=== PATIENT | male | born 1935 | race Caucasian/White ===

== ENCOUNTER 2018-03-20 18:09 | Outpatient (REF) | payer OTHER, SELFPAY ==
--- NOTE | 2018-03-20 15:15 | SKI_PTH ---
PATIENT: PARRISH FITZGERALD LOC: [facility] U#:[id number] AGE/SX: 82/M ROOM: RE03/20/[address]: Jordan Higuera DO : 1935 BED: DIS: 03/20/2018 SPEC #: [id number] RECD: 03/20/18 18:15 STATUS: JADE REQ #: [id number] LIZZIE: 03/20/18 15:[address]: Jordan Higuera DEPT: Surgical Specimen RECD BY: Radha Murrieta ENTERED: 03/20/18 18:16 SP TYPE: YULIET GARCIA DR: Karena Hansen Tissues: 1 - SKIN BIOPSY(SHAVE/PUNCH) Procedures: SKIN LEVEL 4 Comments: [id number]
== END 2018-03-20 18:29 ==
LOC: LBN 18:09
PROVIDERS: PCP Internal Medicine; Visit Provider Otolaryngology Otolaryngology/Facial Plastic Surgery
DX: C44.212 Basal cell carcinoma of skin of right ear and external auricular canal (principal)
CPT/HCPCS: 88305

== ENCOUNTER 2018-05-25 19:25 | Inpatient (IN) | payer OTHER, SELFPAY ==
[2018-05-25] VITALS (40 sets, daily range): BP systolic 96–149; BP diastolic 55–98; PULSE 99–125; RESP 17–41; TEMP 37.3–37.4; O2SAT 88–99
--- NOTE | 2018-05-25 20:00 | ED.GENADUL_ITS ---
Discharge Plan Disposition Patient Disposition: [facility] INPATIENT Condition: Poor Discharge Details Chief Complaint: CVA/TIA Clinical Impression: Acute UTI, Acute confusion, Generalized weakness Reason For Visit: SEPSIS, UTI Admit Date/Time: 05/25/18 23:17 Admit Provider: Fritz Canada Attending Provider: Fritz Canada Primary Care Provider: WU VILLARREAL ED Provider: Jin Iglesias Medical Decision Making Patient presents with general weakness and confusion. Suspect metabolic/infectious etiology but family member is a PA in [facility] and was concerned for TIA/CVA. I don't think that is the issue. Patient initially seen briefly by my colleague, Dr. Nicholas, and orders placed. I then took over the patient when he returned from ID. Patient's EKG is sinus rhythm at 98 with a left bundle branch block which is old compared to an EKG from [facility]. CT scan of the head shows nothing acute. Chest x-ray is negative for pneumonia. Laboratory studies are unremarkable for the most part. His magnesium is a little low at 1.6 and was replaced. Lactic acid a little elevated at 2.3. First troponin negative. White count normal at 10.7. Creatinine a little bit up from baseline. Patient eventually able to provide urine sample after the first liter of LR was given. Urine is infected. This is the source of his weakness and confusion. He is becoming more agitated the longer he is here likely from sundowning from dementia. He is becoming tachycardic but it is not clear whether this is related to agitation or early sepsis. I have ordered a second liter of LR. Given ceftriaxone for the UTI. Case discussed with hospitalist, Dr. Canada, and we have chose Haldol to try to control his agitation. Patient will be admitted to the ICU for further management. Haldol did work nicely to control his agitation. Heart rate came down. He is admitted to the ICU in stable condition. Lab Data Lab results reviewed: Yes I reviewed the patient's lab results. ECG Data Attestation: I personally reviewed and interpreted this ECG (s) as follows: Prior ECG tracings: available for review Interpretation: Sinus rhythm at 98 with left bundle branch block which is old. HPI General Mode of arrival: wheelchair . Date/Time Provider Initiated Documentation: 05/25/18 19:52 . Limitations to Documentation: other (dementia) . Information obtained by: family and RN notes reviewed . HPI Narrative: Patient brought in by for evaluation of general weakness and confusion since about 9 this morning. He has history of dementia but is more confused than normal. states she has noticed him shaking more today then usual as well. He has been eating and drinking okay today. He has had no fever. He has no cough or URI symptoms. He has not complained of pain. He has not vomited or had diarrhea. He has not been weak on one side versus the other, just generally weak. Patient is not able to provide a reliable history at this point. Related Data Home Medications Medication Instructions Recorded Confirmed metformin [Glucophage Xr] 750 mg PO BID 01/16/13 05/25/18 sitagliptin [Januvia] 100 mg PO DAILY 10/23/15 05/25/18 Lactobacillus acidophilus 1 ea PO NS 10/05/16 aspirin [Aspirin Low Dose] 81 mg PO DAILY tab-cap NS 10/05/16 05/25/18 coenzyme Q10 100 mg PO NS 10/05/16 metoprolol succinate 25 mg PO DAILY tab-cap NS 10/05/16 05/25/18 omega-3 fatty acids-fish oil [Fish 1 ea PO NS 10/05/16 Oil] irbesartan 75 mg PO DAILY 05/25/18 05/25/18 rivastigmine 4.6 mg TRANSDERMAL DAILY 05/25/18 05/25/18 Allergies Allergy/AdvReac Type Severity Reaction Status Date / Time tegaderm Allergy Mild Skin Rash Uncoded 05/25/18 19:44 General Stated Complaint: CVA/TIA [place]: 2 Review of Systems Review of Systems Unobtainable due to (dementia/confusion) [facility] Medical History Arthritis (Chronic) Cardiomyopathy (Chronic) Chronic diarrhea (Chronic) Dementia (Chronic) Depressive disorder (Chronic) History of Lyme disease (Chronic) Hyperlipidemia (Chronic) Hypertensive disorder (Chronic) Irregular heart rate (Chronic) Rhinitis (Chronic) Type 2 diabetes mellitus (Chronic) Herpes zoster (Resolved) Malignant lymphoma (Resolved) Polyp of colon (Resolved) Squamous cell carcinoma of skin (Resolved) Surgical History Cholecystectomy (Inactive) Colonoscopy - MAC (Inactive 10/18/16) Extraction of cataract (Inactive) Family History Father Colon cancer Grandmother Colon cancer Maternal Aunt Colon cancer Social History Smoking/Tobacco Use Status: Never Alcohol Intake: never Drug use: Never Substance use type: does not use Do you feel safe at home: Yes Do you feel safe in your relationship?: Yes Exam Const General: comfortable and no acute distress Orientation: alert and oriented to person [facility] Head: normocephalic and atraumatic Mouth: moist mucous membranes Eyes Other: s/p IOL with nonreactive small pupils; cannot follow commands to fully evaluate EOM Neck Neck: no meningeal signs, trachea midline, supple and no JVD Resp Effort & Inspection: normal respiratory effort Auscultation: clear to auscultation bilaterally Cardio Rate: regular rate Rhythm: abnormal rhythm with ectopic beats Heart Sounds: S1 normal and S2 normal Pulses: radial pulses present GI Inspection: normal to inspection Palpation: soft, no guarding, no masses and nontender Skin Rashes: no rashes Neuro General: alert, awake, oriented Patient Orientation: Person, moves all extremities, no focal motor deficits and confused Motor: tremor Sensory Exam: no sensory deficits noted Extrem General: normal to inspection and no clubbing, cyanosis or edema Course Vital Signs Temperature 99.3 F 05/25/18 19:33 Pulse 104 H 05/25/18 19:33 Respiratory Rate 23 05/25/18 19:33 Blood Pressure 142/78 H 05/25/18 19:33 Pulse Oximetry 95 05/25/18 19:33 Temperature 99.3 F 05/25/18 19:33 Temperature Source Temporal Artery Scan 05/25/18 19:33 Pulse 104 H 05/25/18 19:33 Respiratory Rate 23 05/25/18 19:44 Respiratory Effort 05/25/18 19:44 Respiratory Depth Normal 05/25/18 19:44 Respiratory Pattern Normal 05/25/18 19:44 Blood Pressure 142/78 H 05/25/18 19:33 Pulse Oximetry 95 05/25/18 19:33 Oxygen Delivery Method Room Air 05/25/18 19:33 Oxygen Flow Rate 0 05/25/18 19:33 Pain Level 0 05/25/18 19:33
--- NOTE | 2018-05-25 20:04 | DI.COMBO_ITS ---
SYMPTOM/DIAGNOSIS: CONFUSION, WEAKNESS, ? ACUTE CVA AP AND LATERAL CHEST: The AP view is suboptimally penetrated. The heart is enlarged and the aorta is tortuous. This appears to have increased when compared with the previous exam of 2009. The lungs appear clear. No infiltrate, effusion or pulmonary edema is seen. IMPRESSION: Cardiomegaly. No acute abnormality. NONCONTRAST HEAD CT: Mild diffuse atrophy is again noted. No hemorrhage, acute infarct or mass is seen. The ventricles are normal in size. There is no evidence of skull fracture. The sinuses and mastoid air cells are clear where visualized. IMPRESSION: Atrophy, otherwise negative.
[2018-05-25 20:15] LABS: Abs Immature Grans 0.03 k/cumm (0.0-0.09); Absolute Basophil Count 0.03 k/cumm (0.0-0.2); Absolute Eosinophil Count 0.04 k/cumm (0.0-0.7); Absolute Lymphocyte Count 1.13 k/cumm (1.2-3.4); Absolute Monocyte Count 0.76 k/cumm (0.11-0.7); Absolute Neutrophil Count 8.68 k/cumm (1.2-6.7); Basophils % 0.3; Eosinophils % 0.4; HCT 41.6 % (40.0-50.0); HGB 13.9 g/dL (13.5-17.5); Immature Grans % 0.3; Lymphocytes % 10.6; Mean Corp. HGB Concentration 33.4 g/dL (32.0-36.0); Mean Corpuscular Hemoglobin 31.2 pg (27.0-33.0); Mean Corpuscular Volume 93.3 fL (80-95); Mean Platelet Volume 10.4 fL (8.0-11.0); Monocytes % 7.1; Neutrophils % 81.3; Platelet Count 250 x1000/uL (130-400); RBC 4.46 m/cumm (4.50-6.00); RBC Distribution Width 13.4 % (11.8-14.1); White Blood Cell Count 10.67 k/cumm (4.4-10.8)
[2018-05-25] MEDS: Lactated Ringers 1,000 ML 1000 ML IV (20:28)
[2018-05-25] MEDS: Normal Saline Flush 10 ML SYR IVP ×2 (20:29→22:34)
--- NOTE | 2018-05-25 20:31 | DI.VRAD_ITS ---
EXAM: CT Head Without Contrast EXAM DATE/TIME: 05/25/2018 7:53 PM CLINICAL HISTORY: 83 years old, male; Signs and symptoms; Weakness, extremity; Bilateral; Patient HX: Weakness, confusion, R/O acute CVA TECHNIQUE: Axial computed tomography images of the head/brain without contrast. All CT scans at this facility use at least one of these dose optimization techniques: automated exposure control; mA and/or kV adjustment per patient size (includes targeted exams where dose is matched to clinical indication); or iterative reconstruction. Coronal and sagittal reformatted images were created and reviewed. COMPARISON: No relevant prior studies available. FINDINGS: Brain: Changes of cerebral and cerebellar atrophy. Ventricles: No ventriculomegaly. Bones/joints: No acute fracture. Sinuses: Unremarkablel as visualized. No acute sinusitis. Mastoid air cells: Unremarkable as visualized. No mastoid effusion. Soft tissues: Unremarkable. IMPRESSION: No acute focal intracranial lesions. Changes of cerebral and cerebellar atrophy. Dictated and Authenticated by: Wong Villa MD. Ordering:MELISSA Rosario MD
[2018-05-25 20:33] LABS: ALT 24 U/L (12-78); AST 14 U/L (15-37); Albumin 3.6 g/dL (3.4-5.0); Alkaline Phosphatase 68 U/L (46-116); Anion Gap 7.5 mmol/L (3-11); BUN 23 mg/dL (7-18); Bilirubin, Total 0.7 mg/dL (0.2-1.0); CO2 29.5 mmol/L (21.0-32.0); CREATININE 1.38 mg/dL (0.70-1.30); Calcium 9.1 mg/dL (8.5-10.1); Chloride 98 mmol/L (98-107); Estimated GFR 49.45 (mL/min/1.73m2); Glucose 168 mg/dL (70-100); Lipase 203 U/L (73-393); Magnesium 1.6 mg/dL (1.8-2.4); Potassium 4.2 mmol/L (3.5-5.1); Sodium 135 mmol/L (136-145); Total Protein 7.8 g/dL (6.4-8.2)
[2018-05-25 20:34] LABS: Troponin I < 0.02 ng/mL (0.00-0.06)
--- NOTE | 2018-05-25 20:37 | DI.VRAD_ITS ---
EXAM: XR Chest, 2 Views EXAM DATE/TIME: 05/25/2018 8:11 PM CLINICAL HISTORY: 83 years old, male; Signs and symptoms; Wheezing; Patient HX: Weakness, confusion, R/O acute disease TECHNIQUE: XR of the chest, 2 views. COMPARISON: No relevant prior studies available. FINDINGS: Lungs: Unremarkable. No consolidation. Pleural space: Unremarkable. No pleural effusion. No pneumothorax. Heart/Mediastinum: Cardiomegaly. Bones/joints: Unremarkable. IMPRESSION: No infiltrates or effusions. Dictated and Authenticated by: Wong Villa MD. Ordering:MELISSA Rosario MD
[2018-05-25 20:56] LABS: Lactate-non-spesis 2.3 mmol/l (0.6-1.4)
[2018-05-25] MEDS: MAGNESIUM SULFATE 2 GM/50 ML BAG IVPB (21:03)
[2018-05-25] MEDS: Lactated Ringers 1,000 ML 150 ML IV (21:39)
[2018-05-25 21:42] LABS: Bilirubin Negative (Negative); Blood Small (Negative); Clarity Sl Cloudy; Glucose Negative (Negative); Ketones 15 mg/dL (Negative); Leukocyte Esterase Small (Negative); Nitrite Positive (Negative); Specific Gravity 1.025 (1.005-1.025); Urobilinogen 0.2 EU/dL (Up TO 0.2); pH 5.5 (5-8)
[2018-05-25 21:51] LABS: Epithelial Cells Rare HPF (Negative); WBC >50 HPF (0-5)
[2018-05-25 21:52] LABS: Bacteria Many HPF (Negative); C & S Indicated? Yes; Casts Negative LPF (Negative); Crystals Negative HPF (Negative); Mucus Trace (Negative)
[2018-05-25] MEDS: Haloperidol 5 MG/ML VIAL 2 MG IV (22:32)
[2018-05-25 23:49] LABS: Troponin I 0.05 ng/mL (0.00-0.06)
[2018-05-26] VITALS (38 sets, daily range): BP systolic 92–137; BP diastolic 47–99; PULSE 44–113; RESP 8–27; TEMP 36.3–37.7; O2SAT 90–96
[2018-05-26] MEDS: Enoxaparin 30 MG/0.3 ML SYR SC (00:20)
[2018-05-26] MEDS: Lactated Ringers 1,000 ML 150 ML IV (00:27)
--- NOTE | 2018-05-26 01:00 | HPE_ITS ---
Date of service: 05/25/18 Time of Service: 22:50 Assessment and Plan (1) Sepsis: Current visit: Yes Status: Acute patient presented w/ tachycardia, acute confusion, JAHAIRA, and evidence of UTI and left shift in his WBC and elevated blood lactate, all consistent w/ early sepsis. He also has had varible blood pressures w/ initially elevated blood pressure but some borderline low BP as well. Urine cultures have been obtained but blood cultures were not obtained but he has been started on Rocephin 2 gm. I will obtain blood cultures as well and check renal US in the a.m. to rule out pyelonephritis although he has no flank pain and no fevers. I did a POCUS of his abdomen and did not see hydronephrosis or evidence of renal stones. Patient has received 2 liters of LR, I will continue his iv fluids overnight as he has not been eating or drinking well (elevated urine ketones), and he is azotemic. I checked POCUS echocardiogram and he has mild LV dysfunction as seen on apical 4 chamber view and subxiphoid view (I could not get good parasternal long and short axis views). He seems to have respirophasic variation in his IVC of over 50%, therefore I think he would still be fluid responsive. However, given his hx of cardiomyopathy (although no recent admission for acute CHF), one needs to be judicious with his fluids and watch for volume overload. At present he is tolerating fluid challenge. Qualifiers: Sepsis type: sepsis due to unspecified organism Qualified Code(s): A41.9 - Sepsis, unspecified organism (2) Complicated UTI (urinary tract infection): Current visit: Yes Status: Acute will check formal renal US in a.m. to rule out pyelonephritis (3) Nonischemic cardiomyopathy: Current visit: No Status: Chronic no evidence of acute CHF yet. will need to monitor his response to iv fluids. check serial troponin levels in light of new LBBB. no symptoms of ACS. (4) Alzheimer disease: Current visit: No Status: Chronic I have witheld his rivastigmine as this is contraindicated w/ his Toprol XL (per UpToDate drug interaction the two have a class X interaction i.e. do not use together; can cause AV conduction problems and bradycardia including significant pauses. He has new LBBB and has had problems w/ dizziness at home prior to his UTI therefore he may be having significant intermittent heart block or bradycardia at home. I would not resume his Rivastigmine upon discharge and I would follow him up with outpatient monitoring and evaluation advisor such as Zio patch or 30 day event recorder. (5) Type 2 diabetes, controlled, with peripheral neuropathy: Current visit: No Status: Chronic In light of his sepsis, I would hold his metformin and Januvia and treat him w/ Novolog with meal coverage and sliding scale History of Present Illness Chief Complaint: acute confusion Narrative: 83 yr old male w/ PMH of dementia, lymphoma s/p chemo and XRT, radiation induced cardiomyopathy, type 2 DM who was well until around 9 a.m. today when his noted that he was acting odd, putting on new underwear over his old underwear and complained of feeling ill, lightheaded, and generalized weakness w/ difficulty ambulating. His normal baseline is he is able to perform his own ADL's and usually is conversant and generally recognizes family and friends with some memory impairment but generally is able to follow converstions. Today he was confused and combative. He did not have any focal paraparesis, slurred speech, visual disturbances or facial droop. However his called their daughter who is a P.A. in [facility] and she suggested that he might be having a TIA and recommended he be brought to the hospital. The does admit that he has been having polyuria but no visible hematuria. The patient admits to me that he has had difficulty voiding. Evaluation in the ER was performed by Dr. Nicholas and subsequently by Dr. Iglesias. See their notes for details. Workup included, EKG (sinus rhythm rate 98 bpm w/ LBBB which is new compared to 10/23/2015), CXR, head CT w/out contrast. CXR no infiltrates or effusions, but cardiomegaly. CT with cerebral and cerebellar atrophy but no acute intracranial lesions. Labs were remarkable for elevated lactate 2.3, BUN 23, creatinine 1.38, low magnesium 1.6, WBC 10,670 w/ increased PMN of 8680. Treatment included obtaining urine C&S, infusion of lactated ringers 2 liters and Ceftriaxone 2 gm. Patient was combative in the ER and required Haldol 2 mg IV. Patient is now admitted to ICU for treatment of sepsis secondary to UTI. Patient is full code resuscitation according to his . Review of Systems Constitutional Reports system reviewed and no additional complaints, except as docu, Denies chills, Reports fatigue, Denies fever(s), Reports poor appetite and Reports weakness Eyes Reports system reviewed and no additional complaints, except as docu and Denies loss of vision ENT Reports system reviewed and no additional complaints, except as docu Cardiovascular Denies chest pain, Denies syncope, Denies leg edema, Reports lightheadedness, Denies palpitations and Denies dyspnea Respiratory Reports system reviewed and no additional complaints, except as docu, Denies chest congestion, Denies cough and Denies dyspnea Gastrointestinal Reports system reviewed and no additional complaints, except as docu Genitourinary Reports as per HPI Musculoskeletal Reports system reviewed and no additional complaints, except as docu Integumentary/Breasts Reports system reviewed and no additional complaints, except as docu and Reports other (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; still has stitches) Neurologic Denies abnormal movements, Denies abnormal speech, Reports confusion, Denies syncope, Denies focal weakness, Denies loss of vision, Reports memory loss and Reports weakness Psychiatric Reports confusion and Reports memory loss Endocrine Reports fatigue, Reports polyuria and Denies palpitations Hematologic/Lymphatic Reports system reviewed and no additional complaints, except as docu Allergic/Immunologic Reports system reviewed and no additional complaints, except as docu PFSH Medical History Benign colon polyp (Chronic) Depression (Chronic) History of non-Hodgkin's lymphoma (Chronic) Nonischemic cardiomyopathy (Chronic) Squamous cell carcinoma, face (Acute) Alzheimer disease (Chronic) Hyperlipidemia associated with type 2 diabetes mellitus (Chronic) Type 2 diabetes, controlled, with peripheral neuropathy (Chronic) Arthritis (Chronic) Cardiomyopathy (Chronic) Chronic diarrhea (Chronic) Dementia (Chronic) Depressive disorder (Chronic) History of Lyme disease (Chronic) Hyperlipidemia (Chronic) Hypertensive disorder (Chronic) Irregular heart rate (Chronic) Rhinitis (Chronic) Type 2 diabetes mellitus (Chronic) Herpes zoster (Resolved) Malignant lymphoma (Resolved) Polyp of colon (Resolved) Squamous cell carcinoma of skin (Resolved) Surgical History H/O colonoscopy (Resolved) History of cholecystectomy (Resolved) Cholecystectomy (Inactive) Colonoscopy - MAC (Inactive 10/18/16) Extraction of cataract (Inactive) Family History Father Colon cancer Grandmother Colon cancer Maternal Aunt Colon cancer Social History Smoking/Tobacco Use Status: Never Alcohol Intake: never Drug use: Never Substance use type: does not use Do you feel safe at home: Yes Do you feel safe in your relationship?: Yes Meds Home Medications Medication Instructions Recorded Confirmed Type metformin [Glucophage Xr] 750 mg PO BID 01/16/13 05/25/18 History sitagliptin [Januvia] 100 mg PO DAILY 10/23/15 05/25/18 History Lactobacillus acidophilus 1 ea PO NS 10/05/16 History aspirin [Aspirin Low Dose] 81 mg PO DAILY tab-cap NS 10/05/16 05/25/18 History coenzyme Q10 100 mg PO NS 10/05/16 History metoprolol succinate 25 mg PO DAILY tab-cap NS 10/05/16 05/25/18 History omega-3 fatty acids-fish oil [Fish 1 ea PO NS 10/05/16 History Oil] irbesartan 75 mg PO DAILY 05/25/18 05/25/18 History rivastigmine 4.6 mg TRANSDERMAL DAILY 05/25/18 05/25/18 History Allergies Allergy/AdvReac Type Severity Reaction Status Date / Time tegaderm Allergy Mild Skin Rash Uncoded 05/25/18 19:44 Exam Const General: cooperative (patient is now calm post treatment w/ Haldol), no acute distress, well groomed and not diaphoretic Nutritional Appearance: average body habitus Orientation: oriented to person and other (somewhat somnolent but awakens easily and answers my questions in a whisper) [facility] Head: normal to inspection, no palpable skull fracture and normocephalic Ears: external ear abnormal other (right ear w/ sutures from skin excision, no drainage) General nose exam: external nose normal and nares normal Face and sinus: normal facial exam Eyes General: appearance normal, both eyes and all related structures Visual De La Torre: normal visual de la torre by confrontation Alignment and Position: alignment normal Periorbital: periorbital findings normal Eyelids: eyelids normal Conjunctivae: conjunctivae normal Sclera: sclerae normal Cornea: corneas normal EOM: EOM intact bilaterally Neck Neck: normal visual inspection, full ROM, no lymphadenopathy and trachea midline Thyroid: thyroid normal Carotids: normal carotid upstroke Lymphatic: no lymphadenopathy noted Chest Chest: normal inspection of the chest and normal palpation of entire chest wall Resp Effort & Inspection: normal respiratory effort and able to speak in complete s entences Auscultation: clear to auscultation bilaterally Cardio Jugular venous pressure: no JVD Palpation: normal PMI Rate: tachycardic Rhythm: regular rhythm Heart Sounds: S1 normal and other (widely split S2) Bruits: no carotid bruits Pulses: normal peripheral pulses GI Inspection: normal to inspection Palpation: soft, no hepatosplenomegaly and nontender Percussion: normal to percussion Auscultation: normal bowel sounds General: bladder normal to palpation Male General Exam: Yes normal external exam Back/Spine/Pelvis Back: no CVA tenderness Cervical Spine: normal cervical lordosis Thoracic/Lumbar Spine: thoracic and lumbar spine normal to inspection Skin General skin exam: no rashes or lesions noted Neuro General: awake, oriented Patient Orientation: Person, moves all extremities, no focal motor deficits and confused Cognition: abnormal cognition Speech: speech normal Motor: muscle tone normal throughout, strength 5/5 throughout and no movement abnormalities noted Sensory Exam: no sensory deficits noted Extrem General: normal to inspection, full ROM, normal capillary refill, no joint enlargement, no pedal edema and no calf tenderness Psych Appearance: well kempt Mental Status: other (confuses although he is oriented to person) Speech and Movement: speech and movement normal Mood: other (confuses although he is oriented to person) Affect: normal affect Attitude: cooperative Thought Process: circumstantial Insight: limited Judgment: limited Results Imaging Chest x-ray: report reviewed (FINDINGS: Lungs: Unremarkable. No consolidation. Pleural space: Unremarkable. No pleural effusion. No pneumothorax. Heart/Mediastinum: Cardiomegaly. Bones/joints: Unremarkable. IMPRESSION: No infiltrates or effusions. Dictated and Authenticated by: Wong Villa MD.) Additional studies: CT of head w/out contrast: FINDINGS: Brain: Changes of cerebral and cerebellar atrophy. Ventricles: No ventriculomegaly. Bones/joints: No acute fracture. Sinuses: Unremarkablel as visualized. No acute sinusitis. Mastoid air cells: Unremarkable as visualized. No mastoid effusion. Soft tissues: Unremarkable. IMPRESSION: No acute focal intracranial lesions. Changes of cerebral and cerebellar atrophy. Dictated and Authenticated by: Wong Villa MD. EKG: image reviewed (SR rate 98 bpm, LBBB w/ occasional PVC, baseliine artifact; LBBB new since October 23, 2015) Labs : 05/25/18 19:40 05/25/18 19:40 Laboratory Results - last 24 hr 05/25/18 05/25/18 05/25/18 19:40 19:40 20:45 WBC 10.67 RBC 4.46 L Hgb 13.9 Hct 41.6 MCV 93.3 MCH 31.2 MCHC 33.4 RDW 13.4 Plt Count 250 MPV 10.4 Immature Gran % 0.3 Neutrophils % 81.3 Lymphocytes % 10.6 Monocytes % 7.1 Eosinophils % 0.4 Basophils % 0.3 Absolute Neutrophils 8.68 H Absolute Lymphocytes 1.13 L Absolute Monocytes 0.76 H Absolute Eosinophils 0.04 Absolute Basophils 0.03 Sodium 135 L Potassium 4.2 Chloride 98 Carbon Dioxide 29.5 Anion Gap 7.5 BUN 23 H Creatinine 1.38 H Estimated GFR/1.73 m2 49.45 Glucose 168 H Lactate 2.3 H Calcium 9.1 Magnesium 1.6 L Total Bilirubin 0.7 AST 14 L ALT 24 Alkaline Phosphatase 68 Troponin I < 0.02 Total Protein 7.8 Albumin 3.6 Lipase 203 Urine Color Urine Clarity Urine pH Ur Specific Bos[place] Urine Protein Urine Ketones Urine Blood Urine Nitrite Urine Bilirubin Urine Urobilinogen Ur Leukocyte Esterase Urine RBC Urine WBC Ur Epithelial Cells Urine Crystals Urine Bacteria Urine Casts Urine Mucus Urine Other Ur Culture Indicated? Urine Glucose 05/25/18 05/25/18 21:35 23:30 WBC RBC Hgb Hct MCV MCH MCHC RDW Plt Count MPV Immature Gran % Neutrophils % Lymphocytes % Monocytes % Eosinophils % Basophils % Absolute Neutrophils Absolute Lymphocytes Absolute Monocytes Absolute Eosinophils Absolute Basophils Sodium Potassium Chloride Carbon Dioxide Anion Gap BUN Creatinine Estimated GFR/1.73 m2 Glucose Lactate Calcium Magnesium Total Bilirubin AST ALT Alkaline Phosphatase Troponin I 0.05 Total Protein Albumin Lipase Urine Color Yellow Urine Clarity Sl cloudy Urine pH 5.5 Ur Specific Boswell 1.025 Urine Protein 30 H Urine Ketones 15 H Urine Blood Small H Urine Nitrite Positive H Urine Bilirubin Negative Urine Urobilinogen 0.2 Ur Leukocyte Esterase Small H Urine RBC 3-5 H Urine WBC >50 Ur Epithelial Cells Rare Urine Crystals Negative Urine Bacteria Many Urine Casts Negative Urine Mucus Trace Urine Other Ur Culture Indicated? Yes Urine Glucose Negative Last Vital Signs Temp 37.4 C 05/25/18 19:33 Pulse 113 H 05/25/18 23:40 Resp 27 H 05/25/18 23:40 BP 104/58 L 05/25/18 23:40 Pulse Ox 90 L 05/25/18 23:40
[2018-05-26 03:40] LABS: Lactate 1.4 mmol/L (0.6-1.4)
[2018-05-26 04:15] LABS: Troponin I 0.15 ng/mL (0.00-0.06)
--- NOTE | 2018-05-26 07:00 | DI.US_ITS ---
SYMPTOM/DIAGNOSIS: SEPSIS, JAHAIRA, ? PYELONEPHRITIS RENAL ULTRASOUND: The kidneys are normal in size, the right kidney measuring 11.7 cm. in length and the left kidney measuring 10.1 cm. A 10 mm. echogenic focus is seen at the lower pole of the right kidney which could represent a non obstructing stone. A cyst is seen at the superior pole of the left kidney. The exam is somewhat limited by patient body habitus and inability to breath hold. The prevoid bladder volume measured 139 cc's. Both ureteral jets were visualized. The patient was unable to void. The prostate was not measured. There is a question of some debris in the bladder as well as mild bladder wall thickening and trabeculation. IMPRESSION: Somewhat limited exam. Left renal cyst. Non obstructing stone at the lower pole of the right kidney. Question of mild bladder wall trabeculation and debris within the bladder. There are no findings specific for pyelonephritis.
[2018-05-26 07:29] LABS: Abs Immature Grans 0.02 k/cumm (0.0-0.09); Absolute Basophil Count 0.03 k/cumm (0.0-0.2); Absolute Eosinophil Count 0.01 k/cumm (0.0-0.7); Absolute Lymphocyte Count 0.88 k/cumm (1.2-3.4); Absolute Monocyte Count 1.01 k/cumm (0.11-0.7); Basophils % 0.3; Eosinophils % 0.1; HCT 37.4 % (40.0-50.0); HGB 12.4 g/dL (13.5-17.5); Immature Grans % 0.2; Mean Corp. HGB Concentration 33.2 g/dL (32.0-36.0); Mean Corpuscular Hemoglobin 30.7 pg (27.0-33.0); Mean Corpuscular Volume 92.6 fL (80-95); Mean Platelet Volume 10.7 fL (8.0-11.0); Monocytes % 9.1; Neutrophils % 82.3; Platelet Count 185 x1000/uL (130-400); RBC 4.04 m/cumm (4.50-6.00); RBC Distribution Width 13.3 % (11.8-14.1); White Blood Cell Count 11.05 k/cumm (4.4-10.8)
[2018-05-26 07:31] LABS: Absolute Neutrophil Count 9.09 k/cumm (1.2-6.7)
[2018-05-26 07:55] LABS: ALT 17 U/L (12-78); AST 14 U/L (15-37); Albumin 2.9 g/dL (3.4-5.0); Alkaline Phosphatase 53 U/L (46-116); Anion Gap 9.4 mmol/L (3-11); BUN 18 mg/dL (7-18); CO2 25.6 mmol/L (21.0-32.0); CREATININE 1.11 mg/dL (0.70-1.30); Calcium 8.7 mg/dL (8.5-10.1); Chloride 101 mmol/L (98-107); Glucose 167 mg/dL (70-100); Potassium 3.8 mmol/L (3.5-5.1); Sodium 136 mmol/L (136-145); TSH 0.63 uIU/mL (0.358-3.74); Total Protein 6.5 g/dL (6.4-8.2)
[2018-05-26] MEDS: Furosemide 20 MG/2 ML VIAL IVP (07:55)
[2018-05-26] MEDS: Metoprolol CR 25 MG TABCR PO (08:36)
[2018-05-26] MEDS: Aspirin E.C. 81 MG TABEC PO (08:36)
--- NOTE | 2018-05-26 08:42 | PDOC.CMIN ---
- If Service Date Differs Date of service: 05/26/18 Time of Service: 08:42 Care Management Initial Assess REASON FOR HOSPITALIZATION:: Sepsis PAST MEDICAL HISTORY/PAST SURGICAL HISTORY:: Benign colon polyp (Chronic). Depression (Chronic). History of non-Hodgkin's lymphoma (Chronic). Nonischemic cardiomyopathy (Chronic). Squamous cell carcinoma, face (Acute). Alzheimer disease (Chronic). Hyperlipidemia associated with type 2 diabetes mellitus (Chronic). Type 2 diabetes, controlled, with peripheral neuropathy (Chronic). Arthritis (Chronic). Cardiomyopathy (Chronic). Chronic diarrhea (Chronic). Dementia (Chronic). Depressive disorder (Chronic). History of Lyme disease (Chronic). Hyperlipidemia (Chronic). Hypertensive disorder (Chronic). Irregular heart rate (Chronic). Rhinitis (Chronic). Type 2 diabetes mellitus (Chronic). Herpes zoster (Resolved). Malignant lymphoma (Resolved). Polyp of colon (Resolved). Squamous cell carcinoma of skin (Resolved). H/O colonoscopy (Resolved). History of cholecystectomy (Resolved). Cholecystectomy (Inactive). Colonoscopy - MAC (Inactive 10/18/16). Extraction of cataract (Inactive) PREVIOUS FUNCTIONAL STATUS/SOCIAL/FAMILY SUPPORTS:: Harpal resides with his Navid in [facility], he states that he has a son and daughter both whom do not reside locally. Harpal does not drive, and depends on Nav[employer] for transportation and to cook his meals. CURRENT FUNCTIONAL STATUS:: Currently Harpal is lying in bed when this video game script writer visits, he is pleasant and open to discussion. Harpal has to use the restroom when this video game script writer visits, and gets his nurse for him. ADVANCE DIRECTIVES:: None on file Has patient been provided with information about the portal?: Yes Did the patient sign up for the portal?: No CODE STATUS:: Full Code INSURANCE COVERAGE / FINANCIAL ISSUES:: Medicare, [employer] CURRENT HOME/COMMUNITY SERVICES/EQUIPMENT:: Currently Harpal has no services in the community. He has a glucometer and BP machine. PRIMARY CARE PHYSICIAN:: Karena Hansen POTENTIAL DISCHARGE NEEDS:: F/U appointment with PCP PATIENT/FAMILY EDUCATION NEEDS:: Review DC instructions, any limitations, and ongoing DC planning discussion. Discuss 'Ask Me Three' ANTICIPATED BARRIERS TO DISCHARGE:: None identified at this time. TRANSPORTATION:: Via private vehicle with [employer] PLAN:: Harpal will return home with no anticipated services once medically cleared. He will F/U with PCP and plan of care as prescribed. Harpal's Nav[facility] to transport when ready.
--- NOTE | 2018-05-26 08:54 | INITIAL_ITS ---
- If Service Date Differs Date of service: 05/26/18 Time of Service: 08:42 Care Management Initial Assess REASON FOR HOSPITALIZATION:: Sepsis PAST MEDICAL HISTORY/PAST SURGICAL HISTORY:: Benign colon polyp (Chronic). Depression (Chronic). History of non-Hodgkin's lymphoma (Chronic). Nonischemic cardiomyopathy (Chronic). Squamous cell carcinoma, face (Acute). Alzheimer disease (Chronic). Hyperlipidemia associated with type 2 diabetes mellitus (Chronic). Type 2 diabetes, controlled, with peripheral neuropathy (Chronic). Arthritis (Chronic). Cardiomyopathy (Chronic). Chronic diarrhea (Chronic). Dementia (Chronic). Depressive disorder (Chronic). History of Lyme disease (Chronic). Hyperlipidemia (Chronic). Hypertensive disorder (Chronic). Irregular heart rate (Chronic). Rhinitis (Chronic). Type 2 diabetes mellitus (Chronic). Herpes zoster (Resolved). Malignant lymphoma (Resolved). Polyp of colon (Resolved). Squamous cell carcinoma of skin (Resolved). H/O colonoscopy (Resolved). History of cholecystectomy (Resolved). Cholecystectomy (Inactive). Colonoscopy - MAC (Inactive 10/18/16). Extraction of cataract (Inactive) PREVIOUS FUNCTIONAL STATUS/SOCIAL/FAMILY SUPPORTS:: Harpal resides with his w brittnee Navid in [facility], he states that he has a son and daughter both whom do not reside locally. Harpal does not drive, and depends on Nav[employer] for transportation and to cook his meals. CURRENT FUNCTIONAL STATUS:: Currently Harpal is lying in bed when this play writer visits, he is pleasant and open to discussion. Harpal has to use the restroom when this play writer visits, and gets his nurse for him. ADVANCE DIRECTIVES:: None on file Has patient been provided with information about the portal?: Yes Did the patient sign up for the portal?: No CODE STATUS:: Full Code INSURANCE COVERAGE / FINANCIAL ISSUES:: Medicare, [employer] CURRENT HOME/COMMUNITY SERVICES/EQUIPMENT:: Currently Harpal has no services in the community. He has a glucometer and BP machine. PRIMARY CARE PHYSICIAN:: Karena Hansen POTENTIAL DISCHARGE NEEDS:: F/U appointment with PCP PATIENT/FAMILY EDUCATION NEEDS:: Review DC instructions, any limitations, and ongoing DC planning discussion. Discuss 'Ask Me Three' ANTICIPATED BARRIERS TO DISCHARGE:: None identified at this time. TRANSPORTATION:: Via private vehicle with Nav[employer] PLAN:: Harpal will return home with no anticipated services once medically cleared. He will F/U with PCP and plan of care as prescribed. Harpal's Nav[employer] to transport when ready.
[2018-05-26] MEDS: Insulin Aspart 300 UNITS/3 ML PEN SC ×6 (09:09→18:33)
[2018-05-26 09:47] LABS: Troponin I 0.14 ng/mL (0.00-0.06)
--- NOTE | 2018-05-26 09:58 | PHARADMIT ---
Addendum entered by Romana Montiel 05/27/18 11:43: Pharmacy Note Subjective pt with sepsis, UTI Objective afebrile, BC no growth 24 hours, UC sens to ceftriaxone, troponin trended down, FS 139 Assessment Rivastigmine patches from home started, IVF stopped, ceftriaxone Iv continues, Plan watch FS, meds from home not started Irbesartan, Metformin, [place]-3, Januvia Original Note: Admission Pharmacy Clinical Review SEPSIS, UTI Code Status Full Code Current Weight Wgt-88.4 kg Renally Cleared and Narrow Therapeutic Index Meds CrCl~ 50 Ml/min Meds-OK QTc Value / Action Taken QTc-488. Lasix BP Control, Fever BP- 100/55 Tmax- 37.3C Electrolytes reviewed Na- 136 K+3.8 Mag-1.6 DVT Prophylaxis Lovenox Opiate Usage / Scheduled Bowel Regimen Ordered No Yes Plt/SCr for Heparin / Enoxaparin Plts- 185 SCr-1.11 INR for Warfarin na H/H stable, WBC/Bands H&H- 12.4/37.4 WBC- 11.05 Antibiotic appropriateness Rocephin Cultures and Sensitivities Blood-Pendng, [id number] Surgical ABX d/c within 24 hr na DM control / Insulin Dosing BG- 167 Aspart Heart Failure (Check EF%) (DONNIE's, B-Block, Diuretics) Toprol-XL IV to PO Switch No Home Meds Reviewed Yes Home Meds Not Ordered Irbesartan, Metformin, [place]-3, Rivastigmine, Januvia Comments
[2018-05-26 10:40] LABS: Magnesium 1.6 mg/dL (1.8-2.4); NT-proBNP 10352 pg/mL
[2018-05-26] MEDS: Lactated Ringers 1,000 ML 50 ML IV (11:00)
--- NOTE | 2018-05-26 12:30 | MERGE_ITS ---
*[facility]* *[facility]* [address] [place] [address] Date of study: 05/26/2018 Transthoracic Echocardiography M-mode, complete 2D, complete spectral Doppler, and color Doppler *STUDY CONCLUSIONS* Summary: 1. Left ventricle: The cavity size was mildly dilated. Wall thickness was normal. Systolic function was moderately reduced. The estimated ejection fraction was 35-40%. Severe hypokinesis of the inferior and inferoseptal myocardium. 2. Ventricular septum: Septal motion showed paradoxical motion consistent with Bundle Branch Block. 3. Mitral valve: There was mild regurgitation. 4. Left atrium: The atrium was mildly dilated. 5. Right ventricle: The cavity size was normal. Wall thickness was normal. Systolic function was normal. 6. Pulmonary arteries: Pulmonary systolic pressure was increased, in the range of 35mm Hg to 40mm Hg. *PATIENT PRESENTATION* Height: 172.7cm ((68in) ) S/D Pressure: 100 / 55 Weight: 88kg ((193.6lb) ) BSA: 2.08m^2 Test start time: 12:45 PM. Test stop time: 01:45 PM. CONSULTING Karena Hansen PERFORMING Unknown PERFORMING Nv ORDERING Emery Canada REFERRING Emery Canada WOOD GRAINER RT Nestor (R)(CT), O[place] *PROCEDURE DATA* Procedure information: The patient was identified by two identifiers. This study was interpreted by [facility]. Pertinent images and digital data are archived for permanent storage and are available for subsequent review. No prior study was available for comparison. Study status: Routine. Transthoracic echocardiography. M-mode, complete 2D, complete spectral Doppler, and color Doppler. A Transthoracic Echocardiogram was performed. Scanning was performed from the parasternal, apical, subcostal, and suprasternal notch acoustic windows. Images were obtained using an [id number] cardiac ultrasound machine. Image quality was adequate. Study completion: The patient tolerated the procedure well. There were no complications. *CARDIAC ANATOMY* Left ventricle: The cavity size was mildly dilated. Wall thickness was normal. Systolic function was moderately reduced. The estimated ejection fraction was 35-40%. Regional wall motion abnormalities: Severe hypokinesis of the inferior and inferoseptal myocardium. Aortic valve: Trileaflet; normal thickness leaflets. Mobility was not restricted. Doppler: Transvalvular velocity was within the normal range. There was no stenosis. There was no significant regurgitation. VTI ratio of LVOT to aortic valve: 0.63. Valve area (VTI): 2.2cm^2. Indexed valve area (VTI): 1.1cm^2/m^2. Peak velocity ratio of LVOT to aortic valve: 0.64. Valve area (Vmax): 2.3cm^2. Indexed valve area (Vmax): 1.1cm^2/m^2. Mean velocity ratio of LVOT to aortic valve: 0.67. Valve area (Vmean): 2.4cm^2. Indexed valve area (Vmean): 1.1cm^2/m^2. Mean gradient (S): 6.3mm Hg. Peak gradient (S): 10.3mm Hg. Aorta: Aortic root: The aortic root was normal in size. Ascending aorta: The ascending aorta was normal in size. Mitral valve: Mildly thickened leaflets. Mobility was not restricted. Doppler: Transvalvular velocity was within the normal range. There was no evidence for stenosis. There was mild regurgitation. Left atrium: The atrium was mildly dilated. Right ventricle: The cavity size was normal. Wall thickness was normal. Systolic function was normal. Ventricular septum: Septal motion showed paradoxical motion consistent with Bundle Branch Block. Pulmonic valve: The pulmonary valve appears to be grossly normal. Doppler: Transvalvular velocity was within the normal range. There was no evidence for stenosis. There was mild regurgitation. Tricuspid valve: Structurally normal valve. Doppler: Transvalvular velocity was within the normal range. There was no evidence for stenosis. There was mild regurgitation. Pulmonary artery: Pulmonary systolic pressure was increased, in the range of 35mm Hg to 40mm Hg. Right atrium: The atrium was normal in size. Pericardium: There was no pericardial effusion. Systemic veins: Inferior vena cava: Well visualized. The vessel was patent and normal in size. The respirophasic diameter changes were in the normal range (greater than or equal to 50%). Measurements Left ventricle Value Reference LV ID, ED, PLAX 6.0 cm 3.5 - 6.0 LV ID, ES, PLAX (H) 5.0 cm 2.1 - 4.0 LV PW thickness, ED, PLAX 1.0 cm LV end-diastolic volume, 1-p A2C 126 ml LV ejection fraction, 1-p A2C 30 % LV end-diastolic volume, 1-p A4C 179 ml LV ejection fraction, 1-p A4C 32 % LV e', lateral 0.045 m/sec LV E/e', lateral 13 LV e', medial 0.043 m/sec LV E/e', medial 14 LV e', average 0.044 m/sec LV E/e', average 13 Ventricular septum Value Reference IVS thickness, ED, PLAX 1.3 cm LVOT Value Reference LVOT ID, A-P 2.1 cm LVOT area 3.5 cm^2 LVOT peak velocity, S 1.03 m/sec LVOT mean velocity, S 0.81 m/sec LVOT VTI, S 19.0 cm LVOT peak gradient, S 4.2 mm Hg LVOT mean gradient, S 2.8 mm Hg Stroke volume (SV), LVOT DP 67 ml Stroke index (SV/bsa), LVOT DP 32 ml/m^2 Aortic valve Value Reference Aortic valve peak velocity, S 1.6 m/sec Aortic valve mean velocity, S 1.21 m/sec Aortic valve VTI, S 30.0 cm Aortic mean gradient, S 6.3 mm Hg Aortic peak gradient, S 10.3 mm Hg VTI ratio, LVOT/AV 0.63 Aortic valve area, VTI 2.2 cm^2 Velocity ratio, peak, LVOT/AV 0.64 Aortic valve area, peak velocity 2.3 cm^2 Velocity ratio, mean, LVOT/AV 0.67 Aortic valve area, mean velocity 2.4 cm^2 Aortic valve area/bsa, mean velocity 1.1 cm^2/m^2 Aorta Value Reference Aortic root ID, ED 3.7 cm Ascending aorta ID, A-P, S 3.2 cm Left atrium Value Reference LA ID, A-P, ES 4.1 cm LA ID/bsa, A-P 2.0 cm/m^2 <=2.2 LA area, ES, A4C 21.4 cm^2 8.8 - 23.4 LA area, ES, A2C 21 cm^2 LA volume/bsa, ES, 1-p A4C 33 ml/m^2 LA volume, ES, 2-p 61 ml LA volume/bsa, ES, 2-p 29 ml/m^2 LA/aortic root ratio 1.12 Mitral valve Value Reference Mitral E-wave peak velocity 0.59 m/sec Mitral A-wave peak velocity 0.93 m/sec Mitral E/A ratio, peak 0.64 Tricuspid valve Value Reference Tricuspid regurg peak velocity 2.9 m/sec Tricuspid peak RV-RA gradient 34.4 mm Hg Right atrium Value Reference RA area, ES, A4C (H) 24 cm^2 8.3 - 19.5 Legend: (L) and (H) klaudia values outside specified reference range. I have personally reviewed the images and have reviewed and edited the reported findings. Electronically signed by Sameer Solomon 05/26/2018 14:39
--- NOTE | 2018-05-26 18:18 | PGE_ITS ---
Date of Service Date of service: 05/26/18 Time of Service: 18:11 Assessment and Plan (1) Complicated UTI (urinary tract infection): Current visit: Yes Status: Acute Patient presented with acute mental status changes and fever. He is responded well to fluids and antibiotics. E. coli has been identified further sensitivities are pending and is to continue on ceftriaxone and low-dose IV fluids for now. Vital signs have stabilized. (2) Sepsis: Current visit: Yes Status: Acute Blood cultures are no growth to date. His presentation is suspicious for overwhelming sepsis but he has improved with above-mentioned treatments. Monitor cultures through 48 hours. Qualifiers: Sepsis type: sepsis due to unspecified organism Qualified Code(s): A41.9 - Sepsis, unspecified organism (3) Type 2 diabetes, controlled, with peripheral neuropathy: Current visit: No Status: Chronic Blood sugars have been stable. Holding on metformin until condition stabilizes. Continue correction bolus insulin. (4) Nonischemic cardiomyopathy: Current visit: No Status: Chronic Echocardiogram today confirms he has a cardiomyopathy. EF is 35-40% with global wall motion abnormalities. No evidence of congestive heart failure at this time. Troponins have been indeterminant but are trending down. Will check troponin in the a.m. (5) Discharge planning issues: Current visit: Yes Status: Acute Patient is a full code. Continue to monitor in the ICU. Subjective Interval history since last seen: Patient was admitted overnight with acute mental status changes in the setting of a complicated UTI. With IV fluids and IV antibiotics his mental status has improved dramatically. He is still been warm but not having significant chills or rigors. His appetite is back. He has been up moving around in the room. He had an echocardiogram today. Exam Narrative Exam Narrative: On exam he is awake and alert. He is pleasant and cooperative. We had a good discussion about his previous work life and his daughter who is a PA. His lungs sound completely clear on the right and left. His heart sounds are regular his abdomen is soft and nontender including in the suprapubic region. The lower extremities showed no significant edema neurologically there are no focal deficits. Objective Objective Clinical Data: Abnormal lab results 05/25/18 05/25/18 05/25/18 Range/Units 19:40 19:40 20:45 WBC (4.4-10.8) k/cumm RBC 4.46 L (4.50-6.00) m/cumm Hgb (13.5-17.5) g/dL Hct (40.0-50.0) % Absolute Neutrophils 8.68 H (1.2-6.7) k/cumm Absolute Lymphocytes 1.13 L (1.2-3.4) k/cumm Absolute Monocytes 0.76 H (0.11-0.7) k/cumm Sodium 135 L (136-145) mmol/L BUN 23 H (7-18) mg/dL Creatinine 1.38 H (0.70-1.30) mg/dL Glucose 168 H (70-100) mg/dL Lactate 2.3 H (0.6-1.4) mmol/l Magnesium 1.6 L (1.8-2.4) mg/dL AST 14 L (15-37) U/L Troponin I (0.00-0.06) ng/mL NT-Pro-B Natriuret Pep ( - 299) pg/mL Albumin (3.4-5.0) g/dL Urine Protein (Negative) mg/dL Urine Ketones (Negative) mg/dL Urine Blood (Negative) Urine Nitrite (Negative) Ur Leukocyte Esterase (Negative) Urine RBC (0-2) 05/25/18 05/26/18 05/26/18 Range/Units 21:35 03:30 06:50 WBC (4.4-10.8) k/cumm RBC (4.50-6.00) m/cumm Hgb (13.5-17.5) g/dL Hct (40.0-50.0) % Absolute Neutrophils (1.2-6.7) k/cumm Absolute Lymphocytes (1.2-3.4) k/cumm Absolute Monocytes (0.11-0.7) k/cumm Sodium (136-145) mmol/L BUN (7-18) mg/dL Creatinine (0.70-1.30) mg/dL Glucose 167 H (70-100) mg/dL Lactate (0.6-1.4) mmol/l Magnesium (1.8-2.4) mg/dL AST 14 L (15-37) U/L Troponin I 0.15 H* 0.14 H* (0.00-0.06) ng/mL NT-Pro-B Natriuret Pep ( - 299) pg/mL Albumin 2.9 L (3.4-5.0) g/dL Urine Protein 30 H (Negative) mg/dL Urine Ketones 15 H (Negative) mg/dL Urine Blood Small H (Negative) Urine Nitrite Positive H (Negative) Ur Leukocyte Esterase Small H (Negative) Urine RBC 3-5 H (0-2) 05/26/18 05/26/18 Range/Units 06:50 06:50 WBC 11.05 H (4.4-10.8) k/cumm RBC 4.04 L (4.50-6.00) m/cumm Hgb 12.4 L (13.5-17.5) g/dL Hct 37.4 L (40.0-50.0) % Absolute Neutrophils 9.09 H (1.2-6.7) k/cumm Absolute Lymphocytes 0.88 L (1.2-3.4) k/cumm Absolute Monocytes 1.01 H (0.11-0.7) k/cumm Sodium (136-145) mmol/L BUN (7-18) mg/dL Creatinine (0.70-1.30) mg/dL Glucose (70-100) mg/dL Lactate (0.6-1.4) mmol/l Magnesium 1.6 L (1.8-2.4) mg/dL AST (15-37) U/L Troponin I (0.00-0.06) ng/mL NT-Pro-B Natriuret Pep 77197 H ( - 299) pg/mL Albumin (3.4-5.0) g/dL Urine Protein (Negative) mg/dL Urine Ketones (Negative) mg/dL Urine Blood (Negative) Urine Nitrite (Negative) Ur Leukocyte Esterase (Negative) Urine RBC (0-2) Vital Signs Temperature 37 C 05/26/18 16:00 Temperature Source Temporal Artery Scan 05/26/18 16:00 Pulse 96 H 05/26/18 14:10 Pulse 96 H 05/26/18 16:00 Respiratory Rate 22 05/26/18 16:00 Respiratory Effort 05/26/18 16:00 Respiratory Depth Normal 05/26/18 16:00 Respiratory Pattern Normal 05/25/18 19:44 Blood Pressure 115/56 L 05/26/18 14:10 Blood Pressure Mean 75 05/26/18 14:10 Blood Pressure Position Supine 05/26/18 16:00 Pulse Oximetry 94 L 05/26/18 14:10 Oxygen Delivery Method Room Air 05/26/18 16:00 Oxygen Flow Rate 0 05/26/18 16:00 Pain Level 0 05/26/18 16:00 Intake & Output 05/25/18 05/26/18 05/26/18 23:59 11:59 23:59 Intake Total 1000 / 1000 1809 Output Total 400 / 700 300 / 700 Balance 1000 / 1000 1410 / 1330 -80 / 1330 Weight 87.7 kg 88.4 kg Intake: IV 1000 / 1000 1560 / 1560 Oral 250 / 470 220 / 470 Output: Urine 400 / 700 300 / 700 Other: Urine Color Yellow Yellow Urine Appearance Clear Clear Urine Odor None None Comment Pt was incont, contained urine not vizualized. Pt able to have some continence and utilized urinal but bed found to be wet of large amount of urine as well up to commode without much urine output (1-10mls) Stool Size Moderate Stool Characteristics Soft Liquid Brown Voiding Methods Incontinent Urinal Urinal Diaper Diaper Incontinent Incontinent Laboratory Results WBC 11.05 k/cumm (4.4-10.8) H 05/26/18 06:50 RBC 4.04 m/cumm (4.50-6.00) L 05/26/18 06:50 Hgb 12.4 g/dL (13.5-17.5) L 05/26/18 06:50 Hct 37.4 % (40.0-50.0) L 05/26/18 06:50 MCV 92.6 fL (80-95) 05/26/18 06:50 MCH 30.7 pg (27.0-33.0) 05/26/18 06:50 MCHC 33.2 g/dL (32.0-36.0) 05/26/18 06:50 RDW 13.3 % (11.8-14.1) 05/26/18 06:50 Plt Count 185 x1000/uL (130-400) 05/26/18 06:50 MPV 10.7 fL (8.0-11.0) 05/26/18 06:50 Immature Gran % 0.2 05/26/18 06:50 Neutrophils % 82.3 05/26/18 06:50 Lymphocytes % 8.0 05/26/18 06:50 Monocytes % 9.1 05/26/18 06:50 Eosinophils % 0.1 05/26/18 06:50 Basophils % 0.3 05/26/18 06:50 Absolute Neutrophils 9.09 k/cumm (1.2-6.7) H 05/26/18 06:50 Absolute Lymphocytes 0.88 k/cumm (1.2-3.4) L 05/26/18 06:50 Absolute Monocytes 1.01 k/cumm (0.11-0.7) H 05/26/18 06:50 Absolute Eosinophils 0.01 k/cumm (0.0-0.7) 05/26/18 06:50 Absolute Basophils 0.03 k/cumm (0.0-0.2) 05/26/18 06:50 Sodium 136 mmol/L (136-145) 05/26/18 06:50 Potassium 3.8 mmol/L (3.5-5.1) 05/26/18 06:50 Chloride 101 mmol/L (98-107) 05/26/18 06:50 Carbon Dioxide 25.6 mmol/L (21.0-32.0) 05/26/18 06:50 Anion Gap 9.4 mmol/L (3-11) 05/26/18 06:50 BUN 18 mg/dL (7-18) 05/26/18 06:50 Creatinine 1.11 mg/dL (0.70-1.30) 05/26/18 06:50 Estimated GFR/1.73 m2 >= 60.00 (mL/min/1.73m2) 05/26/18 06:50 Glucose 167 mg/dL (70-100) H 05/26/18 06:50 Lactate 1.4 mmol/L (0.6-1.4) 05/26/18 03:30 Calcium 8.7 mg/dL (8.5-10.1) 05/26/18 06:50 Magnesium 1.6 mg/dL (1.8-2.4) L 05/26/18 06:50 Total Bilirubin 1.0 mg/dL (0.2-1.0) 05/26/18 06:50 AST 14 U/L (15-37) L 05/26/18 06:50 ALT 17 U/L (12-78) 05/26/18 06:50 Alkaline Phosphatase 53 U/L (46-116) 05/26/18 06:50 Troponin I 0.14 ng/mL (0.00-0.06) H* 05/26/18 06:50 NT-Pro-B Natriuret Pep 96695 pg/mL (-299) H 05/26/18 06:50 Total Protein 6.5 g/dL (6.4-8.2) 05/26/18 06:50 Albumin 2.9 g/dL (3.4-5.0) L 05/26/18 06:50 Lipase 203 U/L (73-393) 05/25/18 19:40 TSH 0.63 uIU/mL (0.358-3.74) 05/26/18 06:50 Urine Color Yellow (Yellow) 05/25/18 21:35 Urine Clarity Sl cloudy 05/25/18 21:35 Urine pH 5.5 (5-8) 05/25/18 21:35 Ur Specific Butler 1.025 (1.005-1.025) 05/25/18 21:35 Urine Protein 30 mg/dL (Negative) H 05/25/18 21:35 Urine Ketones 15 mg/dL (Negative) H 05/25/18 21:35 Urine Blood Small (Negative) H 05/25/18 21:35 Urine Nitrite Positive (Negative) H 05/25/18 21:35 Urine Bilirubin Negative (Negative) 05/25/18 21:35 Urine Urobilinogen 0.2 EU/dL (Up TO 0.2) 05/25/18 21:35 Ur Leukocyte Esterase Small (Negative) H 05/25/18 21:35 Urine RBC 3-5 (0-2) H 05/25/18 21:35 Urine WBC >50 HPF (0-5) 05/25/18 21:35 Ur Epithelial Cells Rare HPF (Negative) 05/25/18 21:35 Urine Crystals Negative HPF (Negative) 05/25/18 21:35 Urine Bacteria Many HPF (Negative) 05/25/18 21:35 Urine Casts Negative LPF (Negative) 05/25/18 21:35 Urine Mucus Trace (Negative) 05/25/18 21:35 Urine Other (Negative) 05/25/18 21:35 Ur Culture Indicated? Yes 05/25/18 21:35 Urine Glucose Negative mg/dL (Negative) 05/25/18 21:35 Objective Narrative Objective Narrative: Urine culture is growing E. coli. US:US echocardiogram *[facility]* *[facility]* [address] [place] [address] Date of study: 05/26/2018 Transthoracic Echocardiography M-mode, complete 2D, complete spectral Doppler, and color Doppler *STUDY CONCLUSIONS* Summary: 1. Left ventricle: The cavity size was mildly dilated. Wall thickness was normal. Systolic function was moderately reduced. The estimated ejection fraction was 35-40%. Severe hypokinesis of the inferior and inferoseptal myocardium. 2. Ventricular septum: Septal motion showed paradoxical motion consistent with Bundle Branch Block. 3. Mitral valve: There was mild regurgitation. 4. Left atrium: The atrium was mildly dilated. 5. Right ventricle: The cavity size was normal. Wall thickness was normal. Systolic function was normal. 6. Pulmonary arteries: Pulmonary systolic pressure was increased, in the range of 35mm Hg to 40mm Hg.
[2018-05-26] MEDS: Enoxaparin 40 MG/0.4 ML SYR SC (21:53)
[2018-05-27] VITALS (36 sets, daily range): BP systolic 102–152; BP diastolic 45–91; PULSE 46–112; RESP 14–24; TEMP 36.4–37.1; O2SAT 93–97
[2018-05-27] MEDS: Lidocaine 2% Jelly 11 ML SYR UR (01:53)
[2018-05-27] MEDS: Lactated Ringers 1,000 ML 50 ML IV (06:17)
[2018-05-27 07:49] LABS: Anion Gap 7.7 mmol/L (3-11); BUN 17 mg/dL (7-18); CO2 28.3 mmol/L (21.0-32.0); CREATININE 1.29 mg/dL (0.70-1.30); Chloride 105 mmol/L (98-107); Estimated GFR 53.46 (mL/min/1.73m2); Glucose 143 mg/dL (70-100); Potassium 5.2 mmol/L (3.5-5.1); Sodium 141 mmol/L (136-145); Troponin I 0.06 ng/mL (0.00-0.06)
[2018-05-27 08:23] LABS: Magnesium 1.8 mg/dL (1.8-2.4)
[2018-05-27 08:35] LABS: Abs Immature Grans 0.03 k/cumm (0.0-0.09); Absolute Basophil Count 0.02 k/cumm (0.0-0.2); Absolute Eosinophil Count 0.07 k/cumm (0.0-0.7); Absolute Lymphocyte Count 0.71 k/cumm (1.2-3.4); Absolute Monocyte Count 1.07 k/cumm (0.11-0.7); Absolute Neutrophil Count 8.26 k/cumm (1.2-6.7); Basophils % 0.2; Eosinophils % 0.7; HCT 37.6 % (40.0-50.0); HGB 12.8 g/dL (13.5-17.5); Immature Grans % 0.3; Mean Corpuscular Hemoglobin 31.2 pg (27.0-33.0); Mean Corpuscular Volume 91.7 fL (80-95); Mean Platelet Volume 10.3 fL (8.0-11.0); Monocytes % 10.5; Neutrophils % 81.3; Platelet Count 188 x1000/uL (130-400); RBC Distribution Width 13.4 % (11.8-14.1); White Blood Cell Count 10.16 k/cumm (4.4-10.8)
[2018-05-27] MEDS: Aspirin E.C. 81 MG TABEC PO (08:36)
[2018-05-27] MEDS: Metoprolol CR 25 MG TABCR PO (08:36)
[2018-05-27] MEDS: Insulin Aspart 300 UNITS/3 ML PEN SC ×5 (08:36→17:22)
--- NOTE | 2018-05-27 09:20 | PDOC.CMPRO ---
Care Management Progress Note S/O: Harpal was sitting up in his recliner visiting with his . Alert and smiling. Wanted to go home today but hopes that it will be possible tomorrow. A: 83 y.o. male admitted for sepsis, UTI P: Harpal will return home with no anticipated services once medically cleared. He will F/U with PCP and plan of care as prescribed. Harpal's Nav[employer] to transport by private car when ready.
[2018-05-27] MEDS: Magnesium Oxide 400 MG TAB PO (10:29)
--- NOTE | 2018-05-27 13:43 | W.PM.PROGNOT ---
Date of Service Date of service: 05/27/18 Time of Service: 13:44 Assessment and Plan (1) Complicated UTI (urinary tract infection): Current visit: Yes Status: Acute Ultrasound without evidence of hydronephrosis. Culture with pansensitive E.Coli - change IV Ceftriaxone to Fluoroquinolone therapy, with plans on discharge with oral Cipro if tolerated. Currently day #3 of a planned 10 day course of antibiotic therapy. (2) Elevated troponin: Current visit: Yes Status: Acute Minimal, equivocal elevation in troponin in setting of acute illness and JAHAIRA with poor clearance, very likely demand in nature. Value normalized on repeat check. (3) JAHAIRA (acute kidney injury): Current visit: Yes Status: Acute Appears resolved. Monitor. (4) Type 2 diabetes, controlled, with peripheral neuropathy: Current visit: No Status: Chronic Currently with Metformin and Januvia on hold. Continue Sliding Scale coverage. Current Blood Sugars in the 100's. (5) Nonischemic cardiomyopathy: Current visit: No Status: Chronic Reportedly chemo induced Cardiomyopathy, with current LVEF of 35-40%. Currently appears euvolemic. Continue BB therapy - ARB on hold in setting of recent JAHAIRA. Plan on reinitiation if creatinine stable tomorrow. (6) DVT prophylaxis: Current visit: Yes Status: Acute SC Lovenox. (7) Advance directive on file: Current visit: Yes Status: Acute Full Code. Subjective Interval history since last seen: 83 year old man with a prior history of DM and Dementia, admitted from [facility] Emergency Department on 05/25 with a diagnosis of altered mental status in the setting of UTI. Mr. Funez has a past medical history significant for dementia, Lymphoma s/p chemo and XRT, with subsequent radiation induced cardiomyopathy, and DM. He presented to the ED with reported altered mental status, and complaining of feeling ill. Initial work-up revealed evidence of a UTI, and he was admitted for further evaluation and treatment. The patient was initiated on antibiotic therapy with Ceftriaxone, and urine cultures today are positive for a pansensitive E.Coli - Blood Cultures remain negative. This morning Mr. Funez feels well, and his reports vast improvement in symptoms overall, including his confusion and altered mental status. No overnight events reported. Remains afebrile. Exam Narrative Exam Narrative: General: Patient appears comfortable, Awake and alert, NAD Neck: Supple CV: Regular, nontachycardic, S1S2, No rubs, murmurs, or gallops. Pulmonary: Clear to auscultation bilaterally, no crackles, wheezing, or rhonchi Abdomen: + Bowel Sounds, soft, nontender, nondistended Vascular: No lower extremity edema Psych: Normal mood and affect. Objective Objective Clinical Data: Abnormal lab results 05/27/18 05/27/18 Range/Units 06:15 08:25 RBC 4.10 L (4.50-6.00) m/cumm Hgb 12.8 L (13.5-17.5) g/dL Hct 37.6 L (40.0-50.0) % Absolute Neutrophils 8.26 H (1.2-6.7) k/cumm Absolute Lymphocytes 0.71 L (1.2-3.4) k/cumm Absolute Monocytes 1.07 H (0.11-0.7) k/cumm Potassium 5.2 H D (3.5-5.1) mmol/L Glucose 143 H (70-100) mg/dL Vital Signs Temperature 36.4 C L 05/27/18 12:23 Temperature Source Temporal Artery Scan 05/27/18 12:23 Pulse 98 H 05/27/18 13:01 Pulse 89 05/27/18 13:01 Respiratory Rate 18 05/27/18 13:01 Respiratory Effort 05/27/18 12:23 Respiratory Depth Normal 05/27/18 12:23 Respiratory Pattern Normal 05/27/18 12:23 Blood Pressure 112/51 L 05/27/18 13:01 Blood Pressure Mean 65 05/27/18 13:01 Blood Pressure Position Supine 05/26/18 21:46 Pulse Oximetry 94 L 05/27/18 12:23 Oxygen Delivery Method Room Air 05/27/18 12:23 Oxygen Flow Rate 0 05/27/18 12:23 Pain Level 0 05/27/18 12:23 Intake & Output 05/26/18 05/27/18 05/27/18 23:59 11:59 23:59 Intake Total 643.333 / 2453.333 1136.667 / 1376.667 240 / 1376.667 Output Total 1000 / 1500 1050 / 1050 Balance -356.667 / 953.333 86.667 / 326.667 240 / 326.667 Weight 86.6 kg Intake: IV 423.333 / 1983.333 546.667 / 546.667 Oral 220 / 470 590 / 830 240 / 830 Output: Urine 1000 / 1500 1050 / 1050 Other: Urine Color Yellow Yellow Urine Appearance Clear Clear Sediment Urine Odor Strong Normal Comment small incontinence Valdivia in place d/t retention. Valdviia in place d/t retention. Voiding Methods Bedside Commode Urinal Incontinent Laboratory Results WBC 10.16 k/cumm (4.4-10.8) 05/27/18 08:25 RBC 4.10 m/cumm (4.50-6.00) L 05/27/18 08:25 Hgb 12.8 g/dL (13.5-17.5) L 05/27/18 08:25 Hct 37.6 % (40.0-50.0) L 05/27/18 08:25 MCV 91.7 fL (80-95) 05/27/18 08:25 MCH 31.2 pg (27.0-33.0) 05/27/18 08:25 MCHC 34.0 g/dL (32.0-36.0) 05/27/18 08:25 RDW 13.4 % (11.8-14.1) 05/27/18 08:25 Plt Count 188 x1000/uL (130-400) 05/27/18 08:25 MPV 10.3 fL (8.0-11.0) 05/27/18 08:25 Immature Gran % 0.3 05/27/18 08:25 Neutrophils % 81.3 05/27/18 08:25 Band Neutrophils % Cancelled 05/27/18 06:15 Lymphocytes % 7.0 05/27/18 08:25 Atypical Lymphs % Cancelled 05/27/18 06:15 Monocytes % 10.5 05/27/18 08:25 Eosinophils % 0.7 05/27/18 08:25 Basophils % 0.2 05/27/18 08:25 Metamyelocytes % Cancelled 05/27/18 06:15 Myelocytes % Cancelled 05/27/18 06:15 Promyelocytes % Cancelled 05/27/18 06:15 Absolute Neutrophils 8.26 k/cumm (1.2-6.7) H 05/27/18 08:25 Absolute Lymphocytes 0.71 k/cumm (1.2-3.4) L 05/27/18 08:25 Absolute Monocytes 1.07 k/cumm (0.11-0.7) H 05/27/18 08:25 Absolute Eosinophils 0.07 k/cumm (0.0-0.7) 05/27/18 08:25 Absolute Basophils 0.02 k/cumm (0.0-0.2) 05/27/18 08:25 Nucleated RBCs Cancelled 05/27/18 06:15 Differential Comment Cancelled 05/27/18 06:15 Other Cell Type Cancelled 05/27/18 06:15 RBC Morphology Cancelled 05/27/18 06:15 Polychromasia Cancelled 05/27/18 06:15 Hypochromasia Cancelled 05/27/18 06:15 Poikilocytosis Cancelled 05/27/18 06:15 Basophilic Stippling Cancelled 05/27/18 06:15 Anisocytosis Cancelled 05/27/18 06:15 Microcytosis Cancelled 05/27/18 06:15 Macrocytosis Cancelled 05/27/18 06:15 Spherocytes Cancelled 05/27/18 06:15 Target Cells Cancelled 05/27/18 06:15 Tear Drop Cells Cancelled 05/27/18 06:15 Ovalocytes Cancelled 05/27/18 06:15 Stomatocytes Cancelled 05/27/18 06:15 Mccollum-Cathay Bodies Cancelled 05/27/18 06:15 [place] Cells Cancelled 05/27/18 06:15 Acanthocytes (Spur) Cancelled 05/27/18 06:15 Schistocytes Cancelled 05/27/18 06:15 Sodium 141 mmol/L (136-145) 05/27/18 06:15 Potassium 5.2 mmol/L (3.5-5.1) H D 05/27/18 06:15 Chloride 105 mmol/L (98-107) 05/27/18 06:15 Carbon Dioxide 28.3 mmol/L (21.0-32.0) 05/27/18 06:15 Anion Gap 7.7 mmol/L (3-11) 05/27/18 06:15 BUN 17 mg/dL (7-18) 05/27/18 06:15 Creatinine 1.29 mg/dL (0.70-1.30) 05/27/18 06:15 Estimated GFR/1.73 m2 53.46 (mL/min/1.73m2) 05/27/18 06:15 Glucose 143 mg/dL (70-100) H 05/27/18 06:15 Lactate 1.4 mmol/L (0.6-1.4) 05/26/18 03:30 Calcium 9.0 mg/dL (8.5-10.1) 05/27/18 06:15 Magnesium 1.8 mg/dL (1.8-2.4) 05/27/18 06:15 Total Bilirubin 1.0 mg/dL (0.2-1.0) 05/26/18 06:50 AST 14 U/L (15-37) L 05/26/18 06:50 ALT 17 U/L (12-78) 05/26/18 06:50 Alkaline Phosphatase 53 U/L (46-116) 05/26/18 06:50 Troponin I 0.06 ng/mL (0.00-0.06) 05/27/18 06:15 NT-Pro-B Natriuret Pep 93482 pg/mL (-299) H 05/26/18 06:50 Total Protein 6.5 g/dL (6.4-8.2) 05/26/18 06:50 Albumin 2.9 g/dL (3.4-5.0) L 05/26/18 06:50 Lipase 203 U/L (73-393) 05/25/18 19:40 TSH 0.63 uIU/mL (0.358-3.74) 05/26/18 06:50 Urine Color Yellow (Yellow) 05/25/18 21:35 Urine Clarity Sl cloudy 05/25/18 21:35 Urine pH 5.5 (5-8) 05/25/18 21:35 Ur Specific [place] 1.025 (1.005-1.025) 05/25/18 21:35 Urine Protein 30 mg/dL (Negative) H 05/25/18 21:35 Urine Ketones 15 mg/dL (Negative) H 05/25/18 21:35 Urine Blood Small (Negative) H 05/25/18 21:35 Urine Nitrite Positive (Negative) H 05/25/18 21:35 Urine Bilirubin Negative (Negative) 05/25/18 21:35 Urine Urobilinogen 0.2 EU/dL (Up TO 0.2) 05/25/18 21:35 Ur Leukocyte Esterase Small (Negative) H 05/25/18 21:35 Urine RBC 3-5 (0-2) H 05/25/18 21:35 Urine WBC >50 HPF (0-5) 05/25/18 21:35 Ur Epithelial Cells Rare HPF (Negative) 05/25/18 21:35 Urine Crystals Negative HPF (Negative) 05/25/18 21:35 Urine Bacteria Many HPF (Negative) 05/25/18 21:35 Urine Casts Negative LPF (Negative) 05/25/18 21:35 Urine Mucus Trace (Negative) 05/25/18 21:35 Urine Other (Negative) 05/25/18 21:35 Ur Culture Indicated? Yes 05/25/18 21:35 Urine Glucose Negative mg/dL (Negative) 05/25/18 21:35 Urine Culture Final 05/27/18-1021 Day 1 Result ISOLATES BELOW ISOLATE 1 COLONY COUNT 50,000 - 100,000 COLONIES/ML ISOLATE 1 APPEARANCE Gram Negative Jani ISOLATE 1 ACTION IDENTIFICATION TO FOLLOW Day 2 Result ISOLATES BELOW ISOLATE 1 COLONY COUNT >100,000 COLONIES/ML ISOLATE 1 APPEARANCE Gram Negative Jani Organism 1 Escherichia coli COLONY COUNT >100,000 COLONIES/ML Esch coli RESULT Ampicillin S Ampicillin/Sulbactam S Cefazolin S Ceftazidime S CEFTRIAXONE S Ciprofloxacin S Gentamicin R Nitrofurantoin S Imipenem S Levofloxacin S Tobramycin S Trimethoprim/Sulfamethoxazole S Piperacillin/Tazobactam S Objective Narrative Objective Narrative: Exam(s) a US:US echocardiogram *[facility]* *[facility]* [address] [place] [address] Date of study: 05/26/2018 Transthoracic Echocardiography M-mode, complete 2D, complete spectral Doppler, and color Doppler *STUDY CONCLUSIONS* Summary: 1. Left ventricle: The cavity size was mildly dilated. Wall thickness was normal. Systolic function was moderately reduced. The estimated ejection fraction was 35-40%. Severe hypokinesis of the inferior and inferoseptal myocardium. 2. Ventricular septum: Septal motion showed paradoxical motion consistent with Bundle Branch Block. 3. Mitral valve: There was mild regurgitation. 4. Left atrium: The atrium was mildly dilated. 5. Right ventricle: The cavity size was normal. Wall thickness was normal. Systolic function was normal. 6. Pulmonary arteries: Pulmonary systolic pressure was increased, in the range of 35mm Hg to 40mm Hg. Exam(s) a US:US renal SYMPTOM/DIAGNOSIS: SEPSIS, JAHAIRA, ? PYELONEPHRITIS RENAL ULTRASOUND: The kidneys are normal in size, the right kidney measuring 11.7 cm. in length and the left kidney measuring 10.1 cm. A 10 mm. echogenic focus is seen at the lower pole of the right kidney which could represent a non obstructing stone. A cyst is seen at the superior pole of the left kidney. The exam is somewhat limited by patient body habitus and inability to breath hold. The prevoid bladder volume measured 139 cc's. Both ureteral jets were visualized. The patient was unable to void. The prostate was not measured. There is a question of some debris in the bladder as well as mild bladder wall thickening and trabeculation. IMPRESSION: Somewhat limited exam. Left renal cyst. Non obstructing stone at the lower pole of the right kidney. Question of mild bladder wall trabeculation and debris within the bladder. There are no findings specific for pyelonephritis.
[2018-05-27] MEDS: Normal Saline Flush 10 ML SYR IVP (15:10)
[2018-05-27] MEDS: CIPROFLOXACIN 400 MG/200 ML BAG 200 MG IVPB (15:11)
[2018-05-27] MEDS: Enoxaparin 40 MG/0.4 ML SYR SC (21:28)
[2018-05-27] MEDS: Acetaminophen 325 MG TAB PO (21:29)
--- NOTE | 2018-05-27 22:11 | NUR.NOTE ---
Addendum entered by Yancy Whiteside 05/27/18 23:08: Georgiana passed on the name of the hack saw operator pt has seen at [facility] Shaniqua Méndez MSN [id number] or [phone] Original Note: Georgiana(daughter) called to check on pt. Update given. Georgiana reports both pt and Navid need extra help at home and she doesn't feel that Navid can keep up with all the details and needs of their care. She states that she is looking into moving them closer to her for extra support but that Navid has asked about, and Georgiana agrees, pt may need home health services. Nursing Note:
[2018-05-28] VITALS (34 sets, daily range): BP systolic 89–132; BP diastolic 44–90; PULSE 57–114; RESP 18–28; TEMP 36.4–37.1; O2SAT 93–96
[2018-05-28] MEDS: CIPROFLOXACIN 400 MG/200 ML BAG 200 MG IVPB (02:11)
[2018-05-28] MEDS: Acetaminophen 325 MG TAB PO (05:49)
[2018-05-28 06:13] LABS: Abs Immature Grans 0.01 k/cumm (0.0-0.09); Absolute Basophil Count 0.01 k/cumm (0.0-0.2); Absolute Eosinophil Count 0.03 k/cumm (0.0-0.7); Absolute Lymphocyte Count 0.55 k/cumm (1.2-3.4); Absolute Monocyte Count 0.66 k/cumm (0.11-0.7); Basophils % 0.2; Eosinophils % 0.5; HCT 36.6 % (40.0-50.0); HGB 12.3 g/dL (13.5-17.5); Immature Grans % 0.2; Lymphocytes % 8.8; Mean Corp. HGB Concentration 33.6 g/dL (32.0-36.0); Mean Corpuscular Hemoglobin 30.8 pg (27.0-33.0); Mean Corpuscular Volume 91.5 fL (80-95); Mean Platelet Volume 10.3 fL (8.0-11.0); Monocytes % 10.5; Neutrophils % 79.8; Platelet Count 201 x1000/uL (130-400); White Blood Cell Count 6.26 k/cumm (4.4-10.8)
[2018-05-28 06:17] LABS: Anion Gap 9.7 mmol/L (3-11); BUN 17 mg/dL (7-18); CO2 26.3 mmol/L (21.0-32.0); Calcium 8.8 mg/dL (8.5-10.1); Chloride 102 mmol/L (98-107); Estimated GFR 58.11 (mL/min/1.73m2); Glucose 187 mg/dL (70-100); Magnesium 1.7 mg/dL (1.8-2.4); Potassium 3.9 mmol/L (3.5-5.1); Sodium 138 mmol/L (136-145)
[2018-05-28] MEDS: Insulin Aspart 300 UNITS/3 ML PEN SC ×6 (08:30→17:15)
[2018-05-28] MEDS: Aspirin E.C. 81 MG TABEC PO (08:31)
[2018-05-28] MEDS: Metoprolol CR 25 MG TABCR PO (08:31)
--- NOTE | 2018-05-28 10:04 | PDOC.CMPRO ---
Care Management Progress Note S/O: Harpal was sitting up in his recliner visiting with his . Several family friends were also present and engaged with discussions. Alert and smiling. Harpal was able to tell me he has a daughter in [facility] and a son on [place]. Stated he does not want to move anywhere. 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 Said his does most of the chores but he sometimes will help vacuum. Citlalli said he does come to the shop and vacuum up the dog hair after she finishes grooming. They have a large and supportive network of neighbors, friends and members of his yarsani that look in on them and help whenever needed. They also have a very active social life going out to meals and events together with friends. Harpal's daughter Georgiana, who is a PA, lives in [facility] and called the unit last evening to voice concerns. Please refer to the Nurse's note. She wanted her dad to move to [place]. Citlalli is not her mother. This is not possible and the thought of moving to an urban area is distressing to both of them. Georgiana is under a great deal of pressure now as her mother is in a skilled nursing in [place], her dad is here in [place] and she does not have any control over either situation. I am told that Georgiana also was recently not well for a long period of time. Citlalli is capable of managing at home with her support system and perhaps some HH services when Harpal is discharged. Citlalli is worried about managing while she has her cataract surgeries in June (June 12 and June 26). She has asked friends to help out and her sister who is a home caregiver plans to come and stay with her for a few days. There is a wood stove to tend and she will not be able to bend over or lift more than 5 pounds for a few days after each surgery. A: 83 y.o. male admitted for sepsis, UTI P: Harpal will return home and may need services at home. They are not familiar with resources available and would like more information. He will F/U with PCP and plan of care as prescribed. Harpal's Navid to transport by private car when ready.
[2018-05-28] MEDS: Magnesium Oxide 400 MG TAB PO (10:11)
[2018-05-28] MEDS: Potassium Chloride 10 MEQ TABCR PO (10:11)
--- NOTE | 2018-05-28 11:22 | NUR.NOTE ---
Dr. Marques and in room discussing patient care. concerned about Rivastigmine patch, wondering if he was doing better with his mentation with it off. Verbal order given by Dr. Marques to remove patch. Patch removed at this time and placed in sharps container. Nursing Note:
--- NOTE | 2018-05-28 13:04 | PGE_ITS ---
Date of Service Date of service: 05/28/18 Time of Service: 12:51 Assessment and Plan (1) Complicated UTI (urinary tract infection): Current visit: Yes Status: Acute Ultrasound without evidence of hydronephrosis. Culture with pansensitive E.Coli - changed IV Ceftriaxone to Fluoroquinolone therapy yesterday - change to PO today. Currently day #4 of a planned 10 day course of antibiotic therapy. (2) Elevated troponin: Current visit: Yes Status: Acute Minimal, equivocal elevation in troponin in setting of acute illness and JAHAIRA with poor clearance, very likely demand in nature in patient with a history of underlying cardiomyopathy. Value normalized on repeat check. (3) JAHAIRA (acute kidney injury): Current visit: Yes Status: Acute Appears resolved. Monitor. (4) Type 2 diabetes, controlled, with peripheral neuropathy: Current visit: No Status: Chronic Currently with Metformin and Januvia on hold. Continue Sliding Scale coverage. Current Blood Sugars in the 100's. (5) Nonischemic cardiomyopathy: Current visit: No Status: Chronic Reportedly chemo induced Cardiomyopathy, with current LVEF of 35-40%. Currently appears euvolemic. However, with developed tachycardia since yesterday, which he has had a history of. Patient was reinitiated on Rivastigmine (Transdermal Patch) yesterday for his history of dementia - Rare adverse reaction of tachycardia. Per spouse, his mental status also appears worse. Will discontinue Rivastigmine, continue BB therapy. Restart ARB as kidney function remains at baseline (Initial JAHAIRA). (6) DVT prophylaxis: Current visit: Yes Status: Acute SC Lovenox. (7) Advance directive on file: Current visit: Yes Status: Acute Full Code. Subjective Interval history since last seen: 83 year old man with a prior history of DM and Dementia, admitted from [facility] Emergency Department on 05/25 with a diagnosis of altered mental status in the setting of UTI. Mr. Funez has a past medical history significant for dementia, Lymphoma s/p chemo and XRT, with subsequent chemo induced cardiomyopathy, and DM. He presented to the ED with reported altered mental status, and complaining of feeling ill. Initial work-up revealed evidence of a UTI, and he was admitted for further evaluation and treatment. The patient was initiated on antibiotic therapy with Ceftriaxone, and urine cultures were positive for a pansensitive E.Coli - Blood Cultures remain negative. This morning Mr. Funez feels well, and his reports vast improvement in symptoms overall, including his confusion and altered mental status. However, she reports that he does not appear as well as he did yesterday. The patient was reportedly confused overnight. Remains afebrile. Exam Narrative Exam Narrative: General: Patient appears comfortable, Awake and alert, NAD Neck: Supple CV: Regular, borderline tachycardic at time of exam, S1S2, No rubs, murmurs, or gallops. Pulmonary: Clear to auscultation bilaterally, no crackles, wheezing, or rhonchi Abdomen: + Bowel Sounds, soft, nontender, nondistended Vascular: No lower extremity edema Psych: Normal mood and affect. Objective Objective Clinical Data: Abnormal lab results 05/28/18 05/28/18 Range/Units 05:45 05:45 RBC 4.00 L (4.50-6.00) m/cumm Hgb 12.3 L (13.5-17.5) g/dL Hct 36.6 L (40.0-50.0) % Absolute Lymphocytes 0.55 L (1.2-3.4) k/cumm Glucose 187 H (70-100) mg/dL Magnesium 1.7 L (1.8-2.4) mg/dL Vital Signs Temperature 37.1 C 05/28/18 11:55 Temperature Source Temporal Artery Scan 05/28/18 07:45 Pulse 111 H 05/28/18 10:03 Pulse 108 H 05/28/18 10:03 Respiratory Rate 18 05/28/18 10:03 Respiratory Effort 05/28/18 11:55 Respiratory Depth Normal 05/28/18 11:55 Respiratory Pattern Normal 05/28/18 11:55 Blood Pressure 123/85 05/28/18 10:03 Blood Pressure Mean 95 05/28/18 10:03 Blood Pressure Position Supine 05/27/18 20:00 Pulse Oximetry 93 L 05/28/18 11:55 Oxygen Delivery Method Room Air 05/28/18 11:55 Oxygen Flow Rate 0 05/28/18 11:55 Pain Level 0 05/28/18 11:55 Intake & Output 05/27/18 05/28/18 05/28/18 23:59 11:59 23:59 Intake Total 690 / 1826.667 560 / 800 240 / 800 Output Total 1850 / 2900 1100 / 1100 Balance -1160 / -1073.333 -540 / -300 240 / -300 Weight 85.3 kg Intake: IV 210 / 756.667 200 / 200 Oral 480 / 1070 360 / 600 240 / 600 Output: Urine 1850 / 2900 1100 / 1100 Other: Urine Color Pale Yellow Yellow Urine Appearance Cloudy Sediment Comment Valdivia in place Valdivia removed at 1015. Laboratory Results WBC 6.26 k/cumm (4.4-10.8) D 05/28/18 05:45 RBC 4.00 m/cumm (4.50-6.00) L 05/28/18 05:45 Hgb 12.3 g/dL (13.5-17.5) L 05/28/18 05:45 Hct 36.6 % (40.0-50.0) L 05/28/18 05:45 MCV 91.5 fL (80-95) 05/28/18 05:45 MCH 30.8 pg (27.0-33.0) 05/28/18 05:45 MCHC 33.6 g/dL (32.0-36.0) 05/28/18 05:45 RDW 13.0 % (11.8-14.1) 05/28/18 05:45 Plt Count 201 x1000/uL (130-400) 05/28/18 05:45 MPV 10.3 fL (8.0-11.0) 05/28/18 05:45 Immature Gran % 0.2 05/28/18 05:45 Neutrophils % 79.8 05/28/18 05:45 Band Neutrophils % Cancelled 05/27/18 06:15 Lymphocytes % 8.8 05/28/18 05:45 Atypical Lymphs % Cancelled 05/27/18 06:15 Monocytes % 10.5 05/28/18 05:45 Eosinophils % 0.5 05/28/18 05:45 Basophils % 0.2 05/28/18 05:45 Metamyelocytes % Cancelled 05/27/18 06:15 Myelocytes % Cancelled 05/27/18 06:15 Promyelocytes % Cancelled 05/27/18 06:15 Absolute Neutrophils 5.00 k/cumm (1.2-6.7) 05/28/18 05:45 Absolute Lymphocytes 0.55 k/cumm (1.2-3.4) L 05/28/18 05:45 Absolute Monocytes 0.66 k/cumm (0.11-0.7) 05/28/18 05:45 Absolute Eosinophils 0.03 k/cumm (0.0-0.7) 05/28/18 05:45 Absolute Basophils 0.01 k/cumm (0.0-0.2) 05/28/18 05:45 Nucleated RBCs Cancelled 05/27/18 06:15 Differential Comment Cancelled 05/27/18 06:15 Other Cell Type Cancelled 05/27/18 06:15 RBC Morphology Cancelled 05/27/18 06:15 Polychromasia Cancelled 05/27/18 06:15 Hypochromasia Cancelled 05/27/18 06:15 Poikilocytosis Cancelled 05/27/18 06:15 Basophilic Stippling Cancelled 05/27/18 06:15 Anisocytosis Cancelled 05/27/18 06:15 Microcytosis Cancelled 05/27/18 06:15 Macrocytosis Cancelled 05/27/18 06:15 Spherocytes Cancelled 05/27/18 06:15 Target Cells Cancelled 05/27/18 06:15 Tear Drop Cells Cancelled 05/27/18 06:15 Ovalocytes Cancelled 05/27/18 06:15 Stomatocytes Cancelled 05/27/18 06:15 Mccollum-[place] Bodies Cancelled 05/27/18 06:15 [place] Cells Cancelled 05/27/18 06:15 Acanthocytes (Spur) Cancelled 05/27/18 06:15 Schistocytes Cancelled 05/27/18 06:15 Sodium 138 mmol/L (136-145) 05/28/18 05:45 Potassium 3.9 mmol/L (3.5-5.1) D 05/28/18 05:45 Chloride 102 mmol/L (98-107) 05/28/18 05:45 Carbon Dioxide 26.3 mmol/L (21.0-32.0) 05/28/18 05:45 Anion Gap 9.7 mmol/L (3-11) 05/28/18 05:45 BUN 17 mg/dL (7-18) 05/28/18 05:45 Creatinine 1.20 mg/dL (0.70-1.30) 05/28/18 05:45 Estimated GFR/1.73 m2 58.11 (mL/min/1.73m2) 05/28/18 05:45 Glucose 187 mg/dL (70-100) H 05/28/18 05:45 Lactate 1.4 mmol/L (0.6-1.4) 05/26/18 03:30 Calcium 8.8 mg/dL (8.5-10.1) 05/28/18 05:45 Magnesium 1.7 mg/dL (1.8-2.4) L 05/28/18 05:45 Total Bilirubin 1.0 mg/dL (0.2-1.0) 05/26/18 06:50 AST 14 U/L (15-37) L 05/26/18 06:50 ALT 17 U/L (12-78) 05/26/18 06:50 Alkaline Phosphatase 53 U/L (46-116) 05/26/18 06:50 Troponin I 0.06 ng/mL (0.00-0.06) 05/27/18 06:15 NT-Pro-B Natriuret Pep 01322 pg/mL (-299) H 05/26/18 06:50 Total Protein 6.5 g/dL (6.4-8.2) 05/26/18 06:50 Albumin 2.9 g/dL (3.4-5.0) L 05/26/18 06:50 Lipase 203 U/L (73-393) 05/25/18 19:40 TSH 0.63 uIU/mL (0.358-3.74) 05/26/18 06:50 Urine Color Yellow (Yellow) 05/25/18 21:35 Urine Clarity Sl cloudy 05/25/18 21:35 Urine pH 5.5 (5-8) 05/25/18 21:35 Ur Specific [place] 1.025 (1.005-1.025) 05/25/18 21:35 Urine Protein 30 mg/dL (Negative) H 05/25/18 21:35 Urine Ketones 15 mg/dL (Negative) H 05/25/18 21:35 Urine Blood Small (Negative) H 05/25/18 21:35 Urine Nitrite Positive (Negative) H 05/25/18 21:35 Urine Bilirubin Negative (Negative) 05/25/18 21:35 Urine Urobilinogen 0.2 EU/dL (Up TO 0.2) 05/25/18 21:35 Ur Leukocyte Esterase Small (Negative) H 05/25/18 21:35 Urine RBC 3-5 (0-2) H 05/25/18 21:35 Urine WBC >50 HPF (0-5) 05/25/18 21:35 Ur Epithelial Cells Rare HPF (Negative) 05/25/18 21:35 Urine Crystals Negative HPF (Negative) 05/25/18 21:35 Urine Bacteria Many HPF (Negative) 05/25/18 21:35 Urine Casts Negative LPF (Negative) 05/25/18 21:35 Urine Mucus Trace (Negative) 05/25/18 21:35 Urine Other (Negative) 05/25/18 21:35 Ur Culture Indicated? Yes 05/25/18 21:35 Urine Glucose Negative mg/dL (Negative) 05/25/18 21:35
[2018-05-28] MEDS: Ciprofloxacin 500 MG TAB PO ×2 (14:39→21:21)
[2018-05-28] MEDS: Metoprolol 12.5 MG TAB PO (14:39)
--- NOTE | 2018-05-28 14:41 | CMPROGNOTE_ITS ---
Care Management Progress Note S/O: Harpal was sitting up in his recliner visiting with his . Several family friends were also present and engaged with discussions. Alert and smiling. Harpal was able to tell me he has a daughter in [facility] and a son on [place]. Stated he does not want to move anywhere. 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 Said his does most of the chores but he sometimes will help vacuum. Citlalli said he does come to the shop and vacuum up the dog hair after she finishes grooming. They have a large and supportive network of neighbors, friends and members of his baptism that look in on them and help whenever needed. They also have a very active social life going out to meals and events together with friends. Harpal's daughter Georgiana, who is a PA, lives in [facility] and called the unit last evening to voice concerns. Please refer to the Nurse's note. She wanted her dad to move to [place]. Citlalli is not her mother. This is not possible and the thought of moving to an urban area is distressing to both of them. Georgiana is under a great deal of pressure now as her mother is in a group home in [place], her dad is here in [place] and she does not have any control over either situation. I am told that Georgiana also was recently not well for a long period of time. Citlalli is capable of managing at home with her support system and perhaps some HH services when Harpal is discharged. Citlalli is worried about managing while she has her cataract surgeries in June (June 12 and June 26). She has asked friends to help out and her sister who is a home caregiver plans to come and stay with her for a few days. There is a wood stove to tend and she will not be able to bend over or lift more than 5 pounds for a few days after each surgery. A: 83 y.o. male admitted for sepsis, UTI P: Harpal will return home and may need services at home. They are not familiar with resources available and would like more information. He will F/U with PCP and plan of care as prescribed. Harpal's Navid to transport by private car when ready.
[2018-05-28] MEDS: Enoxaparin 40 MG/0.4 ML SYR SC (21:22)
[2018-05-28] MEDS: Docusate Sodium 100 MG CAP PO (21:22)
[2018-05-29] VITALS (29 sets, daily range): BP systolic 92–129; BP diastolic 46–100; PULSE 46–112; RESP 15–28; TEMP 36.4–37.3; O2SAT 93–99
[2018-05-29] MEDS: Haloperidol 5 MG/ML VIAL 2 MG IM/IV (02:48)
[2018-05-29] MEDS: Normal Saline Flush 10 ML SYR IVP ×2 (02:49→10:22)
[2018-05-29 06:08] LABS: Abs Immature Grans 0.02 k/cumm (0.0-0.09); Absolute Basophil Count 0.02 k/cumm (0.0-0.2); Absolute Eosinophil Count 0.02 k/cumm (0.0-0.7); Absolute Lymphocyte Count 0.69 k/cumm (1.2-3.4); Absolute Neutrophil Count 5.87 k/cumm (1.2-6.7); Basophils % 0.3; Eosinophils % 0.3; HCT 36.5 % (40.0-50.0); HGB 12.2 g/dL (13.5-17.5); Immature Grans % 0.3; Lymphocytes % 8.9; Mean Corp. HGB Concentration 33.4 g/dL (32.0-36.0); Mean Corpuscular Hemoglobin 30.7 pg (27.0-33.0); Mean Corpuscular Volume 91.7 fL (80-95); Mean Platelet Volume 9.8 fL (8.0-11.0); Monocytes % 14.2; Platelet Count 214 x1000/uL (130-400); RBC 3.98 m/cumm (4.50-6.00); RBC Distribution Width 13.2 % (11.8-14.1); White Blood Cell Count 7.72 k/cumm (4.4-10.8)
[2018-05-29 06:20] LABS: Anion Gap 9.8 mmol/L (3-11); BUN 19 mg/dL (7-18); CO2 25.2 mmol/L (21.0-32.0); CREATININE 1.25 mg/dL (0.70-1.30); Calcium 8.2 mg/dL (8.5-10.1); Chloride 101 mmol/L (98-107); Estimated GFR 55.44 (mL/min/1.73m2); Glucose 181 mg/dL (70-100); Magnesium 1.5 mg/dL (1.8-2.4); Potassium 3.8 mmol/L (3.5-5.1); Sodium 136 mmol/L (136-145)
[2018-05-29] MEDS: Normal Saline 500 ML 30 ML IV (10:20)
[2018-05-29] MEDS: MAGNESIUM SULFATE 2 GM/50 ML BAG IVPB (10:20)
[2018-05-29] MEDS: Insulin Aspart 300 UNITS/3 ML PEN SC ×5 (10:27→17:15)
[2018-05-29] MEDS: Potassium Chloride 20 MEQ TABCR PO (10:56)
[2018-05-29] MEDS: Ciprofloxacin 500 MG TAB PO ×2 (11:44→20:29)
[2018-05-29] MEDS: Tamsulosin 0.4 MG CAPCR PO (11:44)
[2018-05-29] MEDS: Metoprolol CR 25 MG TABCR PO (11:44)
[2018-05-29] MEDS: Aspirin E.C. 81 MG TABEC PO (11:44)
--- NOTE | 2018-05-29 14:29 | PGE_ITS ---
Date of Service Date of service: 05/29/18 Time of Service: 14:16 Assessment and Plan (1) Complicated UTI (urinary tract infection): Current visit: Yes Status: Acute Ultrasound without evidence of hydronephrosis. Culture with pansensitive E.Coli - changed IV Ceftriaxone to Fluoroquinolone therapy previously, now on PO formulation. Currently day #5 of a planned 10 day course of antibiotic therapy. (2) Urinary retention: Current visit: Yes Status: Acute In setting of infection. Attempts at void trial yesterday unsuccessful. Initiate a-shayna today, with plans for outpatient follow-up for repeat void trial with either PCP or Urology. (3) Elevated troponin: Current visit: Yes Status: Acute Minimal, equivocal elevation in troponin in setting of acute illness and JAHAIRA with poor clearance, very likely demand in nature in patient with a history of underlying cardiomyopathy. Value normalized on repeat check. (4) JAHAIRA (acute kidney injury): Current visit: Yes Status: Acute Appears resolved. Monitor. (5) Type 2 diabetes, controlled, with peripheral neuropathy: Current visit: No Status: Chronic Currently with Metformin and Januvia on hold. Continue Sliding Scale coverage. Current Blood Sugars in the 100's. 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 Continues to appear euvolemic. Continue BB therapy. Restarted ARB as kidney function remains at baseline (Initial JAHAIRA). (7) DVT prophylaxis: Current visit: Yes Status: Acute SC Lovenox. (8) Advance directive on file: Current visit: Yes Status: Acute Full Code. (9) Discharge planning issues: Current visit: Yes Status: Acute For likely discharge tomorrow. Subjective Interval history since last seen: 83 year old man with a prior history of DM and Dementia, admitted from [facility] Emergency Department on 05/25 with a diagnosis of altered mental status in the setting of UTI. Mr. Funez has a past medical history significant for dementia, Lymphoma s/p chemo and XRT, with subsequent chemo induced cardiomyopathy, and DM. He presented to the ED with reported altered mental status, and complaining of feeling ill. Initial work-up revealed evidence of a UTI, and he was admitted for further evaluation and treatment. The patient was initiated on antibiotic therapy with Ceftriaxone initially, changed to Cipro with urine cultures positive for a pansensitive E.Coli - Blood Cultures remain negative. The patient continues to have episodes of sundowning overnight - received IV Haldol last night and was significantly somnolent this morning, but returning more to his baseline throughout the day today. Attempts at void trial were unsuccessful, and the patient had his wong reinserted last night as well. He has no complaints. Remains afebrile. Exam Narrative Exam Narrative: General: Patient appears comfortable, Awake and alert, NAD Neck: Supple CV: Regular, nontachycardic at time of exam, S1S2, No rubs, murmurs, or gallops. Pulmonary: Clear to auscultation bilaterally, no crackles, wheezing, or rhonchi Abdomen: + Bowel Sounds, soft, nontender, nondistended Vascular: No lower extremity edema Psych: Normal mood and affect. Objective Objective Clinical Data: Abnormal lab results 05/29/18 05/29/18 Range/Units 05:55 05:55 RBC 3.98 L (4.50-6.00) m/cumm Hgb 12.2 L (13.5-17.5) g/dL Hct 36.5 L (40.0-50.0) % Absolute Lymphocytes 0.69 L (1.2-3.4) k/cumm Absolute Monocytes 1.10 H (0.11-0.7) k/cumm BUN 19 H (7-18) mg/dL Glucose 181 H (70-100) mg/dL Calcium 8.2 L (8.5-10.1) mg/dL Magnesium 1.5 L (1.8-2.4) mg/dL Vital Signs Temperature 37.3 C 05/29/18 04:02 Temperature Source Temporal Artery Scan 05/29/18 04:02 Pulse 90 05/29/18 12:00 Pulse 91 H 05/29/18 12:00 Respiratory Rate 20 05/29/18 12:00 Respiratory Effort Non-Labored 05/29/18 06:35 Respiratory Depth Normal 05/29/18 06:35 Respiratory Pattern Normal 05/29/18 06:35 Blood Pressure 122/78 05/29/18 12:00 Blood Pressure Mean 88 05/29/18 12:00 Blood Pressure Position Supine 05/29/18 00:30 Pulse Oximetry 94 L 05/29/18 12:00 Oxygen Delivery Method Room Air 05/29/18 00:30 Oxygen Flow Rate 0 05/29/18 00:30 Pain Level 0 05/29/18 00:30 Intake & Output 05/28/18 05/29/18 05/29/18 23:59 11:59 23:59 Intake Total 390 / 950 100 / 100 Output Total 200 / 1300 525 / 525 Balance 190 / -350 -425 / -425 Weight 85.4 kg Intake: IV 30 / 230 Oral 360 / 720 100 / 100 Output: Urine 200 / 1300 525 / 525 Other: Urine Color Light Fiordaliza Urine Appearance Clear Comment attempting to void n urinal after bladder scan w/o results wong patent Voiding Methods Urinal Laboratory Results WBC 7.72 k/cumm (4.4-10.8) 05/29/18 05:55 RBC 3.98 m/cumm (4.50-6.00) L 05/29/18 05:55 Hgb 12.2 g/dL (13.5-17.5) L 05/29/18 05:55 Hct 36.5 % (40.0-50.0) L 05/29/18 05:55 MCV 91.7 fL (80-95) 05/29/18 05:55 MCH 30.7 pg (27.0-33.0) 05/29/18 05:55 MCHC 33.4 g/dL (32.0-36.0) 05/29/18 05:55 RDW 13.2 % (11.8-14.1) 05/29/18 05:55 Plt Count 214 x1000/uL (130-400) 05/29/18 05:55 MPV 9.8 fL (8.0-11.0) 05/29/18 05:55 Immature Gran % 0.3 05/29/18 05:55 Neutrophils % 76.0 05/29/18 05:55 Band Neutrophils % Cancelled 05/27/18 06:15 Lymphocytes % 8.9 05/29/18 05:55 Atypical Lymphs % Cancelled 05/27/18 06:15 Monocytes % 14.2 05/29/18 05:55 Eosinophils % 0.3 05/29/18 05:55 Basophils % 0.3 05/29/18 05:55 Metamyelocytes % Cancelled 05/27/18 06:15 Myelocytes % Cancelled 05/27/18 06:15 Promyelocytes % Cancelled 05/27/18 06:15 Absolute Neutrophils 5.87 k/cumm (1.2-6.7) 05/29/18 05:55 Absolute Lymphocytes 0.69 k/cumm (1.2-3.4) L 05/29/18 05:55 Absolute Monocytes 1.10 k/cumm (0.11-0.7) H 05/29/18 05:55 Absolute Eosinophils 0.02 k/cumm (0.0-0.7) 05/29/18 05:55 Absolute Basophils 0.02 k/cumm (0.0-0.2) 05/29/18 05:55 Nucleated RBCs Cancelled 05/27/18 06:15 Differential Comment Cancelled 05/27/18 06:15 Other Cell Type Cancelled 05/27/18 06:15 RBC Morphology Cancelled 05/27/18 06:15 Polychromasia Cancelled 05/27/18 06:15 Hypochromasia Cancelled 05/27/18 06:15 Poikilocytosis Cancelled 05/27/18 06:15 Basophilic Stippling Cancelled 05/27/18 06:15 Anisocytosis Cancelled 05/27/18 06:15 Microcytosis Cancelled 05/27/18 06:15 Macrocytosis Cancelled 05/27/18 06:15 Spherocytes Cancelled 05/27/18 06:15 Target Cells Cancelled 05/27/18 06:15 Tear Drop Cells Cancelled 05/27/18 06:15 Ovalocytes Cancelled 05/27/18 06:15 Stomatocytes Cancelled 05/27/18 06:15 [employer] Bodies Cancelled 05/27/18 06:15 Kristine Cells Cancelled 05/27/18 06:15 Acanthocytes (Spur) Cancelled 05/27/18 06:15 Schistocytes Cancelled 05/27/18 06:15 Sodium 136 mmol/L (136-145) 05/29/18 05:55 Potassium 3.8 mmol/L (3.5-5.1) 05/29/18 05:55 Chloride 101 mmol/L (98-107) 05/29/18 05:55 Carbon Dioxide 25.2 mmol/L (21.0-32.0) 05/29/18 05:55 Anion Gap 9.8 mmol/L (3-11) 05/29/18 05:55 BUN 19 mg/dL (7-18) H 05/29/18 05:55 Creatinine 1.25 mg/dL (0.70-1.30) 05/29/18 05:55 Estimated GFR/1.73 m2 55.44 (mL/min/1.73m2) 05/29/18 05:55 Glucose 181 mg/dL (70-100) H 05/29/18 05:55 Lactate 1.4 mmol/L (0.6-1.4) 05/26/18 03:30 Calcium 8.2 mg/dL (8.5-10.1) L 05/29/18 05:55 Magnesium 1.5 mg/dL (1.8-2.4) L 05/29/18 05:55 Total Bilirubin 1.0 mg/dL (0.2-1.0) 05/26/18 06:50 AST 14 U/L (15-37) L 05/26/18 06:50 ALT 17 U/L (12-78) 05/26/18 06:50 Alkaline Phosphatase 53 U/L (46-116) 05/26/18 06:50 Troponin I 0.06 ng/mL (0.00-0.06) 05/27/18 06:15 NT-Pro-B Natriuret Pep 53104 pg/mL (-299) H 05/26/18 06:50 Total Protein 6.5 g/dL (6.4-8.2) 05/26/18 06:50 Albumin 2.9 g/dL (3.4-5.0) L 05/26/18 06:50 Lipase 203 U/L (73-393) 05/25/18 19:40 TSH 0.63 uIU/mL (0.358-3.74) 05/26/18 06:50 Urine Color Yellow (Yellow) 05/25/18 21:35 Urine Clarity Sl cloudy 05/25/18 21:35 Urine pH 5.5 (5-8) 05/25/18 21:35 Ur Specific [place] 1.025 (1.005-1.025) 05/25/18 21:35 Urine Protein 30 mg/dL (Negative) H 05/25/18 21:35 Urine Ketones 15 mg/dL (Negative) H 05/25/18 21:35 Urine Blood Small (Negative) H 05/25/18 21:35 Urine Nitrite Positive (Negative) H 05/25/18 21:35 Urine Bilirubin Negative (Negative) 05/25/18 21:35 Urine Urobilinogen 0.2 EU/dL (Up TO 0.2) 05/25/18 21:35 Ur Leukocyte Esterase Small (Negative) H 05/25/18 21:35 Urine RBC 3-5 (0-2) H 05/25/18 21:35 Urine WBC >50 HPF (0-5) 05/25/18 21:35 Ur Epithelial Cells Rare HPF (Negative) 05/25/18 21:35 Urine Crystals Negative HPF (Negative) 05/25/18 21:35 Urine Bacteria Many HPF (Negative) 05/25/18 21:35 Urine Casts Negative LPF (Negative) 05/25/18 21:35 Urine Mucus Trace (Negative) 05/25/18 21:35 Urine Other (Negative) 05/25/18 21:35 Ur Culture Indicated? Yes 05/25/18 21:35 Urine Glucose Negative mg/dL (Negative) 05/25/18 21:35
--- NOTE | 2018-05-29 14:46 | PDOC.CMPRO ---
- If Service Date Differs Date of service: 05/29/18 Time of Service: 14:46 Care Management Progress Note S/O: Harpal is lying in bed this morning, he is receptive to discussion, though appears tired this morning. SO Navid not in at time of visit. No change in DC plan. A: 83 y.o. male admitted for sepsis, UTI P: Harpal will return home and may need services at home. He will F/U with PCP and plan of care as prescribed. Harpal's Navid to transport by private car when ready.
--- NOTE | 2018-05-29 15:03 | CHAPLAIN ---
I visited with Harpal and his Navid. Harpal was sitting up in bed. He didn't say much, and was soft spoken when he did speak. He very pleasantly greeted Dr. Marques when he came into the room. I explained my role and offered support. Friends arrived to visit as I was leaving.
[2018-05-29] MEDS: Enoxaparin 40 MG/0.4 ML SYR SC (21:05)
[2018-05-30] VITALS (10 sets, daily range): BP systolic 93–121; BP diastolic 46–78; PULSE 68–98; RESP 16–28; TEMP 36.2–36.7; O2SAT 93–97
[2018-05-30 07:36] LABS: Abs Immature Grans 0.03 k/cumm (0.0-0.09); Absolute Basophil Count 0.03 k/cumm (0.0-0.2); Absolute Eosinophil Count 0.18 k/cumm (0.0-0.7); Absolute Lymphocyte Count 0.75 k/cumm (1.2-3.4); Absolute Monocyte Count 0.91 k/cumm (0.11-0.7); Basophils % 0.7; Eosinophils % 3.9; HCT 36.8 % (40.0-50.0); HGB 12.2 g/dL (13.5-17.5); Immature Grans % 0.7; Lymphocytes % 16.3; Mean Corp. HGB Concentration 33.2 g/dL (32.0-36.0); Mean Corpuscular Hemoglobin 30.6 pg (27.0-33.0); Mean Corpuscular Volume 92.2 fL (80-95); Mean Platelet Volume 10.1 fL (8.0-11.0); Monocytes % 19.8; Neutrophils % 58.6; Platelet Count 209 x1000/uL (130-400); RBC 3.99 m/cumm (4.50-6.00); RBC Distribution Width 13.4 % (11.8-14.1)
[2018-05-30] MEDS: Tamsulosin 0.4 MG CAPCR PO (07:57)
[2018-05-30] MEDS: Normal Saline Flush 10 ML SYR IVP (07:57)
[2018-05-30] MEDS: Ciprofloxacin 500 MG TAB PO (07:58)
[2018-05-30] MEDS: Metoprolol CR 25 MG TABCR PO (07:58)
[2018-05-30] MEDS: Aspirin E.C. 81 MG TABEC PO (07:58)
[2018-05-30 08:01] LABS: Anion Gap 10.4 mmol/L (3-11); BUN 20 mg/dL (7-18); CO2 24.6 mmol/L (21.0-32.0); CREATININE 1.21 mg/dL (0.70-1.30); Calcium 8.1 mg/dL (8.5-10.1); Chloride 102 mmol/L (98-107); Estimated GFR 57.56 (mL/min/1.73m2); Glucose 169 mg/dL (70-100); Magnesium 2.1 mg/dL (1.8-2.4); Potassium 3.9 mmol/L (3.5-5.1); Sodium 137 mmol/L (136-145)
[2018-05-30] MEDS: Insulin Aspart 300 UNITS/3 ML PEN SC ×4 (10:22→14:14)
[2018-05-30] MEDS: Potassium Chloride 10 MEQ TABCR PO (10:26)
--- NOTE | 2018-05-30 10:32 | PDOC.CMDIS ---
- If Service Date Differs Date of service: 05/30/18 Time of Service: 10:32 LACE Index Scoring Tool - Questions: Length of Stay (in days): 4 - 6 Acuity (Admit via E.D.?): Yes Comorbidities: Diabetes w/o Complication, Any Tumor, Dementia E.D. Visits: 1 - Answers: Total Score: 13 Risk of Readmission: High Risk Care Management Discharge Reason for Hospitalization: Sepsis Discharge Plan: Harpal will return home with new home health RN services. He will F/U with PCP, Dr. Austin, and plan of care as prescribed. Harpal's Navid will transport. Patient/Family Education Needs: Review DC instructions, any limitations, and discuss 'Ask Me Three' Services Needed at Discharge: Home Health Care Services (RN)
--- NOTE | 2018-05-30 12:58 | DSE_ITS ---
Date of service: 05/30/18 Time of Service: 12:52 DS: Diagnosis Discharge Diagnosis (1) Complicated UTI (urinary tract infection): Status: Acute (2) Urinary retention: Status: Acute (3) Elevated troponin: Status: Acute (4) JAHAIRA (acute kidney injury): Status: Acute (5) Type 2 diabetes, controlled, with peripheral neuropathy: Status: Chronic (6) Nonischemic cardiomyopathy: Status: Chronic (7) DVT prophylaxis: Status: Acute (8) Advance directive on file: Status: Acute Discharge Plan Disposition Patient Disposition: HOME W/HOME HEALTH SERVICE Condition: Improving Discharge Details Reason For Visit: Altered Mental Status, UTI Admit Date/Time: 05/25/18 22:17 Admit Provider: Fritz Canada Attending Provider: Fritz Canada Primary Care Provider: WU VILLARREAL Hospital Course Hospital Course: CC: Altered Mental Status HPI: 83 year old man with a prior history of DM and Dementia, admitted from [facility] Emergency Department on 05/25 with a diagnosis of altered mental status in the setting of UTI. Mr. Funez has a past medical history significant for dementia, Lymphoma s/p chemo and XRT, with subsequent chemo induced cardiomyopathy, and DM. He presented to the ED with reported altered mental status, and complaining of fe eling ill. Initial work-up revealed evidence of a UTI, and he was admitted for further evaluation and treatment. The patient was initiated on antibiotic therapy with Ceftriaxone initially, changed to Cipro with urine cultures positive for a pansensitive E.Coli - Blood Cultures remain negative. The patient has had episodes of sundowning overnight - received IV Haldol previously which resulted in significant somnolence. However, last night he was vastly improved from an agitation standpoint, and this morning appears to be at his baseline. Also with evidence of urinary retention, with failed attempts at void trial. He has no complaints. Remains afebrile. Hospital Course: (1) Complicated UTI (urinary tract infection): Ultrasound without evidence of hydronephrosis. Culture with pansensitive E.Coli - changed IV Ceftriaxone to Fluoroquinolone therapy previously, now on PO formulation. Currently day #6 of a planned 10 day course of antibiotic therapy. (2) Urinary retention: In setting of infection. Attempts at void trial previously unsuccessful. Initiated a-shayna today, with plans for outpatient follow-up for repeat void trial with either PCP or Urology in one week. Discussed with Dr. Austin from Urology who agrees with plan. (3) Elevated troponin: Minimal, equivocal elevation in troponin in setting of acute illness and JAHAIRA with poor clearance, very likely demand in nature in patient with a history of underlying cardiomyopathy. Value normalized on repeat check. (4) JAHAIRA (acute kidney injury): Resolved. (5) Type 2 diabetes, controlled, with peripheral neuropathy: Will resume Metformin and Januvia upon discharge. (6) Nonischemic cardiomyopathy: Reportedly chemo induced Cardiomyopathy, with current LVEF of 35-40%. Continues to appear euvolemic. Continue BB therapy. Restarted ARB as kidney function remains at baseline (Initial JAHAIRA). (7) DVT prophylaxis: Was maintained on SC Lovenox. (8) Advance directive on file: Full Code. (9) Discharge planning issues: Discharge with Home health for nursing services. Nursing instructed to provide education on wong care to spouse as well. Home Meds and New Rx's Prescriptions: New ciprofloxacin HCl 500 mg Tablet 500 mg PO BID Qty: 8 RF: 0 tamsulosin 0.4 mg Capsule 0.4 mg PO DAILY Qty: 30 RF: 0 Continued aspirin [Aspirin Low Dose] 81 MG tablet,delayed release (DR/EC) 81 mg PO DAILY RF: 0 metoprolol succinate 25 MG tablet extended release 24 hr 25 mg PO DAILY RF: 0 coenzyme Q10 100 MG capsule 100 mg PO RF: 0 omega-3 fatty acids-fish oil [Fish Oil] 1 EACH capsule 1 ea PO RF: 0 Lactobacillus acidophilus 1 EACH capsule 1 ea PO RF: 0 metformin [Glucophage XR] 750 MG tablet extended release 24 hr 750 mg PO BID RF: 0 Januvia 100 MG tablet 100 mg PO DAILY RF: 0 irbesartan 75 mg Tablet 75 mg PO DAILY RF: 0 Discontinued rivastigmine 4.6 mg/24 hr Patch 24 Hour 4.6 mg Transdermal DAILY RF: 0 Discharge Instructions Referrals: Ace Austin MD [ [facility] STAFF PHYSICIAN] - 06/12/18 8:00 am WU VILLARREAL [Primary Care Provider] - 06/07/18 1:40 pm Activity:: No strenuous activityh Equipment/Supplies:: No Equipment Needed Diet:: Carb Counting Discharge Orders Discharge Orders: Discharge Order (Routine); Ordered 05/30/18 Ordered By: Thien Marques Exam Narrative Exam Narrative: General: Patient appears comfortable, Awake and alert, NAD Neck: Supple CV: Regular, nontachycardic at time of exam, S1S2, No rubs, murmurs, or gallops. Pulmonary: Clear to auscultation bilaterally, no crackles, wheezing, or rhonchi Abdomen: + Bowel Sounds, soft, nontender, nondistended Vascular: No lower extremity edema Psych: Normal mood and affect. DS: Data Vitals/I&O Vitals and I&O: Vital Signs Temperature 36.4 C L 05/30/18 07:45 Temperature Source Temporal Artery Scan 05/30/18 07:45 Pulse 89 05/30/18 10:01 Pulse 91 H 05/30/18 10:01 Respiratory Rate 22 05/30/18 10:01 Respiratory Effort Non-Labored 05/30/18 07:45 Respiratory Depth Normal 05/30/18 07:45 Respiratory Pattern Normal 05/30/18 07:45 Blood Pressure 98/50 L 05/30/18 10:01 Blood Pressure Mean 62 05/30/18 10:01 Blood Pressure Position Supine 05/30/18 07:45 Pulse Oximetry 96 05/30/18 10:01 Oxygen Delivery Method Room Air 05/30/18 07:45 Oxygen Flow Rate 0 05/30/18 07:45 Pain Level 0 05/30/18 07:45 Intake & Output 05/29/18 05/30/18 05/30/18 23:59 11:59 23:59 Intake Total 407.5 / 518.0 Output Total 350 / 875 935 / 935 Balance 57.5 / -357.0 -935 / -935 Weight 85.5 kg Intake: IV 67.5 / 78.0 Oral 340 / 440 Output: Urine 350 / 875 935 / 935 Other: Urine Color Light Fiordaliza Yellow Urine Appearance Clear Clear Sediment Comment wong patent in place wong patent in place Completed studies during hospitalization [Text1]: Exam(s) 05/24 [id number] RAD:Right Wrist Limited SYMPTOM/DIAGNOSIS: F/U FX RIGHT WRIST: There has been no change in the alignment of a distal radial fracture when compared with previous images of 05/07/17. Exam(s) a CT:CT head wo a RAD:XR chest 2V PA & lateral SYMPTOM/DIAGNOSIS: CONFUSION, WEAKNESS, ? ACUTE CVA AP AND LATERAL CHEST: The AP view is suboptimally penetrated. The heart is enlarged and the aorta is tortuous. This appears to have increased when compared with the previous exam of 2008. The lungs appear clear. No infiltrate, effusion or pulmonary edema is seen. IMPRESSION: Cardiomegaly. No acute abnormality. NONCONTRAST HEAD CT: Mild diffuse atrophy is again noted. No hemorrhage, acute infarct or mass is seen. The ventricles are normal in size. There is no evidence of skull fracture. The sinuses and mastoid air cells are clear where visualized. IMPRESSION: Atrophy, otherwise negative. Exam(s) a US:US renal SYMPTOM/DIAGNOSIS: SEPSIS, JAHAIRA, ? PYELONEPHRITIS RENAL ULTRASOUND: The kidneys are normal in size, the right kidney measuring 11.7 cm. in length and the left kidney measuring 10.1 cm. A 10 mm. echogenic focus is seen at the lower pole of the right kidney which could represent a non obstructing stone. A cyst is seen at the superior pole of the left kidney. The exam is somewhat limited by patient body habitus and inability to breath hold. The prevoid bladder volume measured 139 cc's. Both ureteral jets were visualized. The patient was unable to void. The prostate was not measured. There is a question of some debris in the bladder as well as mild bladder wall thickening and trabeculation. IMPRESSION: Somewhat limited exam. Left renal cyst. Non obstructing stone at the lower pole of the right kidney. Question of mild bladder wall trabeculation and debris within the bladder. There are no findings specific for pyelonephritis. Exam(s) a US:US echocardiogram Date of study: 05/26/2018 Transthoracic Echocardiography M-mode, complete 2D, complete spectral Doppler, and color Doppler *STUDY CONCLUSIONS* Summary: 1. Left ventricle: The cavity size was mildly dilated. Wall thickness was normal. Systolic function was moderately reduced. The estimated ejection fraction was 35-40%. Severe hypokinesis of the inferior and inferoseptal myocardium. 2. Ventricular septum: Septal motion showed paradoxical motion consistent with Bundle Branch Block. 3. Mitral valve: There was mild regurgitation. 4. Left atrium: The atrium was mildly dilated. 5. Right ventricle: The cavity size was normal. Wall thickness was normal. Systolic function was normal. 6. Pulmonary arteries: Pulmonary systolic pressure was increased, in the range of 35mm Hg to 40mm Hg. Labs on day of discharge: Labs from last 24 hours 05/30/18 05/30/18 06:35 06:35 WBC 4.60 D RBC 3.99 L Hgb 12.2 L Hct 36.8 L MCV 92.2 MCH 30.6 MCHC 33.2 RDW 13.4 Plt Count 209 MPV 10.1 Immature Gran % 0.7 Neutrophils % 58.6 Lymphocytes % 16.3 Monocytes % 19.8 Eosinophils % 3.9 Basophils % 0.7 Absolute Neutrophils 2.70 Absolute Lymphocytes 0.75 L Absolute Monocytes 0.91 H Absolute Eosinophils 0.18 Absolute Basophils 0.03 Sodium 137 Potassium 3.9 Chloride 102 Carbon Dioxide 24.6 Anion Gap 10.4 BUN 20 H Creatinine 1.21 Estimated GFR/1.73 m2 57.56 Glucose 169 H Calcium 8.1 L Magnesium 2.1 Preliminary micro results at discharge 05/26/18 06:55 Blood Culture - Preliminary Blood NO GROWTH 96 HOURS 05/26/18 06:50 Blood Culture - Preliminary Blood NO GROWTH 96 HOURS [facility] Medical History Benign colon polyp (Chronic) Depression (Chronic) History of non-Hodgkin's lymphoma (Chronic) Nonischemic cardiomyopathy (Chronic) Squamous cell carcinoma, face (Acute) Alzheimer disease (Chronic) Hyperlipidemia associated with type 2 diabetes mellitus (Chronic) Type 2 diabetes, controlled, with peripheral neuropathy (Chronic) Arthritis (Chronic) Cardiomyopathy (Chronic) Chronic diarrhea (Chronic) Dementia (Chronic) Depressive disorder (Chronic) History of Lyme disease (Chronic) Hyperlipidemia (Chronic) Hypertensive disorder (Chronic) Irregular heart rate (Chronic) Rhinitis (Chronic) Type 2 diabetes mellitus (Chronic) Herpes zoster (Resolved) Malignant lymphoma (Resolved) Polyp of colon (Resolved) Squamous cell carcinoma of skin (Resolved) Surgical History H/O colonoscopy (Resolved) History of cholecystectomy (Resolved) Cholecystectomy (Inactive) Colonoscopy - MAC (Inactive 10/18/16) Extraction of cataract (Inactive) Family History Father Colon cancer Grandmother Colon cancer Maternal Aunt Colon cancer Social History Smoking/Tobacco Use Status: Never Alcohol Intake: never Drug use: Never Substance use type: does not use Do you feel safe at home: Yes Do you feel safe in your relationship?: Yes
--- NOTE | 2018-05-30 15:39 | PDOC.HHF2F ---
1. Encounter Date and Reason I certify that PARRISH FITZGERALD was seen by Thien Marques on 05/30/18 and that I had a [id number] encounter with this patient that meets the physician face to face encounter requirements. 2. Clinical Findings Supporting Skilled Need and Homebound Status I certify that home health services are medically necessary, include either intermittent nursing home and/or physical/speech therapy, and that this patient is homebound in that absences from the home require considerable and taxing effort and are infrequent or of short duration, or are attributable to the need to receive medical care. [X] (a) Attached documentation from encounter provides clinical findings supporting skilled need and homebound status (including what assistance patient requires to leave the home). The encounter with the patient was in whole, or in part, for the following medical condition, which is the primary reason for home health care: Altered Mental Status, UTI Halfway: New medications, including antibiotics. Valdivia catheter care and management. Underlying dementia with continued acute delirium that appears to be improving, but may take a number of weeks prior to returning back to baseline. Physical Therapy: Speech Therapy: Homebound: 3. Certification and Authentication I certify that I composed the above information based on my clinical judgement relating to this patient's medical condition and, if applicable, clinical findings communicated to me by the NPP or inpatient physician who performed the Home Health Referral. All further orders will be obtained through (Community Based Physician - PCP)
--- NOTE | 2018-05-30 15:57 | W.INDIABCONS ---
Date of service: 05/30/18 Time of Service: 15:57 Diabetes Inpatient Consult DESCRIPTION/ASSESSMENT: Appreciate diabetes consult for Mr. Funez who is 83 years old with UTI/sepsis. BMI 28 No current A1c available. Mr. Funez manages diabets with Metformin 750mg twice daily and sitagliptin. Blood sugars here fasting 139-164; before other meals and bedtime 122-193 except 266mg/dl pre-lunch today. He receives Aspart 1 unit for 10 grams and sensitive insulin correction. INTERVENTION: Given his reasonable glycemic control for his age and comorbidities, no intervention suggested at this time. If blood sugars persist in 200s, will reassess at that time. PLAN: Will follow blood sugars. Time Spent in Nutritional Counseling and Treatment: 0 minutes face to face inpatient
--- NOTE | 2018-06-05 09:12 | PDOC.CMPRO ---
Care Management Progress Note DORINDA rec'd call from Abbie; FILEMON at [facility], reporting Harpal had not rec'd contact from [facility] for home health services. DORINDA provided contact for [facility]. Abbie called again to report [facility] stated orders were not rec'd for this patient. DORINDA faxed orders.
--- NOTE | 2018-06-05 09:13 | CMPROGNOTE_ITS ---
Care Management Progress Note DORINDA rec'd call from Abbie; FILEMON at [facility], reporting Harpal had not rec'd contact from [facility] for home health services. DORINDA provided contact for [facility]. Abbie called again to report [facility] stated orders were not rec'd for this patient. DORINDA faxed orders.
== END 2018-05-30 16:10 | disposition home health service (06) | DRG 689 ==
LOC: ER 22:48 → ICU 05-26 00:27
PROVIDERS: Family Medicine; Physician Assistant; Admitting Provider Internal Medicine; Emergency Provider Emergency Medicine; PCP Internal Medicine; Visit Provider Internal Medicine
DX: N39.0 Urinary tract infection, site not specified (principal); A41.9 Sepsis, unspecified organism; R65.20 Severe sepsis without septic shock; N17.9 Acute kidney failure, unspecified; I42.8 Other cardiomyopathies; F05 Delirium due to known physiological condition; R79.89 Other specified abnormal findings of blood chemistry; E11.42 Type 2 diabetes mellitus with diabetic polyneuropathy; G30.9 Alzheimer's disease, unspecified; F02.80 Dementia in other diseases classified elsewhere, unspecified severity, without behavioral disturbance, psychotic disturbance, mood disturbance, and anxiety; I51.7 Cardiomegaly; I44.7 Left bundle-branch block, unspecified; E83.42 Hypomagnesemia; I34.0 Nonrheumatic mitral (valve) insufficiency; Z71.3 Dietary counseling and surveillance; B96.20 Unspecified Escherichia coli [E. coli] as the cause of diseases classified elsewhere; Z92.21 Personal history of antineoplastic chemotherapy; Z85.72 Personal history of non-Hodgkin lymphomas; Z79.84 Long term (current) use of oral hypoglycemic drugs
CPT/HCPCS: 36415; 76770; 80048; 80053; 83690; 87040; 87077; 93005; 93306; 96361; 96365; 96368; 96375; 99223; 99232; 99233; 99239; 99285; J1650; 70450; 71046; 81003; 81015; 83605; 83735; 83880; 84443; 84484; 85025; 87086; 87186; 93010; J0744; J1630; J1941; J3490

== ENCOUNTER → 2018-07-11 12:37 | Outpatient (BNVA) | payer OTHER, SELFPAY | PROVIDERS: PCP Internal Medicine; Visit Provider Urology | DX: N39.0 Urinary tract infection, site not specified (principal); R33.9 Retention of urine, unspecified; B96.20 Unspecified Escherichia coli [E. coli] as the cause of diseases classified elsewhere; R35.1 Nocturia; E11.40 Type 2 diabetes mellitus with diabetic neuropathy, unspecified | CPT/HCPCS: 51798; 81003; 99203; 99214 ==

== ENCOUNTER → 2018-10-03 15:09 | Outpatient (BNVA) | payer OTHER, SELFPAY | PROVIDERS: PCP Internal Medicine; Visit Provider Urology | DX: R33.9 Retention of urine, unspecified (principal); Z99.3 Dependence on wheelchair | CPT/HCPCS: 51798; 99213 ==

== ENCOUNTER → 2019-01-09 10:15 | Outpatient (BNVA) | payer OTHER, SELFPAY | PROVIDERS: PCP Internal Medicine; Referring Provider Internal Medicine; Visit Provider Urology | DX: R33.9 Retention of urine, unspecified (principal) | CPT/HCPCS: 51798; 99213 ==

== ENCOUNTER → 2019-08-28 12:47 | Outpatient (BNVA) | payer OTHER, SELFPAY | PROVIDERS: PCP Internal Medicine; Referring Provider Internal Medicine; Visit Provider Urology | DX: R33.8 Other retention of urine (principal); R29.6 Repeated falls | CPT/HCPCS: 99213 ==